=== PATIENT | male | born 1995 ===

== ENCOUNTER → 2021-02-08 13:06 | Outpatient (REF) | payer OTHER, SELFPAY | LOC: HO.SL 13:06 | PROVIDERS: PCP Internal Medicine; Visit Provider Internal Medicine | DX: R40.0 Somnolence (principal); R53.83 Other fatigue | CPT/HCPCS: 95806 ==

== ENCOUNTER 2021-10-19 12:40 | Outpatient (REF) | payer OTHER, SELFPAY ==
--- NOTE | ~2021-10-19 | XR_ITS ---
EXAMINATION: 1. RADIOGRAPHS RIGHT HAND 2. RADIOGRAPHS LEFT HAND CLINICAL INFORMATION: Bilateral hand pain COMPARISON: None TECHNIQUE: 3 views of each hand. FINDINGS: Right hand: Visualized portion of the distal radius and ulna demonstrate no fracture. Carpal rows are well aligned. No carpal, metacarpal or phalangeal fracture. No appreciable degenerative changes of the right hand. No focal soft tissue swelling. No radiopaque foreign body. Some subtle sclerotic changes within the distal fourth phalanx are nonspecific but likely outbound telemarketing representative of a bone island. Left hand: Visualized portion of the distal radius and ulna demonstrate no fracture. Carpal rows are well aligned. No carpal, metacarpal or phalangeal fracture. No appreciable degenerative changes of the left hand. No focal soft tissue swelling. No radiopaque foreign body. XR/XR hand LT min 3V IMPRESSION: No fracture or gross abnormality of either hand.
--- NOTE | ~2021-10-19 | XR_ITS ---
EXAMINATION: 1. RADIOGRAPHS RIGHT HAND 2. RADIOGRAPHS LEFT HAND CLINICAL INFORMATION: Bilateral hand pain COMPARISON: None TECHNIQUE: 3 views of each hand. FINDINGS: Right hand: Visualized portion of the distal radius and ulna demonstrate no fracture. Carpal rows are well aligned. No carpal, metacarpal or phalangeal fracture. No appreciable degenerative changes of the right hand. No focal soft tissue swelling. No radiopaque foreign body. Some subtle sclerotic changes within the distal fourth phalanx are nonspecific but likely client services representative of a bone island. Left hand: Visualized portion of the distal radius and ulna demonstrate no fracture. Carpal rows are well aligned. No carpal, metacarpal or phalangeal fracture. No appreciable degenerative changes of the left hand. No focal soft tissue swelling. No radiopaque foreign body. XR/XR hand RT min 3V IMPRESSION: No fracture or gross abnormality of either hand.
[2021-10-19 14:00] LABS: MANUAL DIFF FLAG NO
[2021-10-19 14:06] LABS: Basophils Percent Auto 0.5 % (0-2); Eosinophils Absolute Auto 0.3 X10*3/uL (0.0-0.4); Eosinophils Percent Auto 4.2 % (0-4); Hematocrit 39.2 % (42.0-52.0); Hemoglobin 13.7 g/dl (14.0-18.0); Imm Gran Abs Auto 0.03 X10*3/uL (0.00-0.03); Imm Gran Pct Auto 0.4 % (0.0-0.4); Lymphocytes Percent Auto 25.2 % (20-40); Mean Corpuscular HGB Conc 34.9 g/dl (31.0-36.0); Mean Corpuscular Hemoglobin 31.5 pg (27.0-33.0); Mean Corpuscular Volume 90.1 fL (80.0-98.0); Mean Platelet Volume 10.8 fL (9.4-12.4); Monocytes Absolute Auto 0.6 X10*3/uL (0.1-1.2); Monocytes Percent Auto 7.2 % (2-11); Neutrophils Percent Auto 62.5 % (45-73); Platelet Count 252 X10*3/uL (160-400); Red Blood Count 4.35 X10*6/uL (4.60-5.80); Red Cell Distribution Width 11.3 % (11.0-16.0)
[2021-10-19 14:22] LABS: Alanine Aminotransferase 26 U/L (0-40); Albumin Level 4.5 g/dL (3.5-5.0); Alkaline Phosphatase 62 U/L (39-117); Anion Gap 8 (12-20); Aspartate Amino Transferase 20 U/L (5-37); Blood Urea Nitrogen 11 mg/dL (9-16); C Reactive Protein 0.15 mg/dL (< or = 0.50); Calcium 9.6 mg/dL (8.4-10.2); Carbon Dioxide 32 mmol/L (22-29); Chloride 103 mmol/L (96-108); Estimated Glomerular Filt Rate > 60; Glucose Random 101 mg/dL (60-115); Potassium 4.3 mmol/L (3.3-5.1); Rheumatoid Factor < 15.0 IU/mL (<15.0); Sodium 139 mmol/L (135-145); Total Protein 7.1 g/dL (6.5-8.0)
[2021-10-19 14:45] LABS: Erythrocyte Sedimentation Rate 2 MM/HR (0-15)
[2021-10-19 14:47] LABS: TSH reflex Free T4 1.17 uIU/mL (0.32-4.0)
[2021-10-20 14:15] LABS: Anti Nuclear Antibody Screen NEGATIVE (NEGATIVE)
== END 2021-10-19 12:41 | disposition home or self-care (01) ==
LOC: HO.HMGCLDS 12:40
PROVIDERS: PCP Internal Medicine; Visit Provider Internal Medicine
DX: M79.642 Pain in left hand (principal); M79.641 Pain in right hand; M25.641 Stiffness of right hand, not elsewhere classified; M25.642 Stiffness of left hand, not elsewhere classified; M25.661 Stiffness of right knee, not elsewhere classified; M25.662 Stiffness of left knee, not elsewhere classified
CPT/HCPCS: 36415; 73130; 80053; 82550; 84443; 85025; 85652; 86038; 86039; 86140; 86431

== ENCOUNTER → 2022-08-30 08:08 | Outpatient (BNVA) | payer OTHER, SELFPAY | PROVIDERS: PCP Internal Medicine; Referring Provider Internal Medicine; Visit Provider Student in an Organized Health Care Education/Training Program | DX: M25.661 Stiffness of right knee, not elsewhere classified (principal); M25.662 Stiffness of left knee, not elsewhere classified; M25.642 Stiffness of left hand, not elsewhere classified; M25.641 Stiffness of right hand, not elsewhere classified | CPT/HCPCS: 99202 ==

== ENCOUNTER 2022-09-19 13:05 | Outpatient (REF) | payer OTHER, SELFPAY ==
--- NOTE | ~2022-09-19 | MR_ITS ---
EXAMINATION: MR KNEE WITHOUT CONTRAST, LEFT CLINICAL INFORMATION: M23.90 - Unspecified internal derangement of unspecified knee. Patient reports left knee pain, weakness, popping x years. No trauma. COMPARISON: None TECHNIQUE: MRI of the knee without contrast was performed using routine sequences on a high-field scanner. FINDINGS: MENISCI: Medial Meniscus: Intact Lateral Meniscus: Borderline incomplete discoid morphology. No tears. LIGAMENTS: Cruciate: Intact Collateral: Intact EXTENSOR MECHANISM: Intact. The iliotibial band is normal in appearance. No surrounding edema signal. Fluid underlying the IT band at the level of the lateral femoral condyle corresponds to a lateral recess of the joint space (image 5/19 of series 2). ARTICULAR CARTILAGE/BONE: Patellofemoral Compartment: Normal. Articular cartilage appears well-preserved. Normal trochlear morphology. TT TG distance measures 1.1 cm. Medial Compartment: Normal Lateral Compartment: Normal JOINT FLUID AND BURSAE: No significant joint effusion or bursitis. MR/MR knee LT wo con IMPRESSION: Borderline incomplete discoid morphology of the lateral meniscus. No appreciable meniscal tears. Otherwise normal MRI of the knee.
== END 2022-09-19 13:06 | disposition home or self-care (01) ==
LOC: HO.MRI 13:05
PROVIDERS: Visit Provider Student in an Organized Health Care Education/Training Program
DX: M23.92 Unspecified internal derangement of left knee (principal)
CPT/HCPCS: 73721

== ENCOUNTER 2022-10-16 15:00 | Outpatient (RCR) | payer OTHER, SELFPAY ==
--- NOTE | 2022-09-18 15:14 | MHC.OT.EP ---
[address] [phone] Occupational Therapy Plan of Care Date of Evaluation: 09/18/22 Diagnosis: B/L Hand Pain and Weakness Assessment: 26 yo male presents w/ B/L hand pain and stiffness, right hand more than left, worsening w/ work tasks, and present for the past year or so. He lives w/ and son and is Ind w/ daily activities, he enjoys woodworking and building things, as well as donald and bowling. On assessment, he has good range and stretch w/ no significant joint limitations, but does have tightness in intrinsic hand muscles and forearm flexors and extensors. He will benefit from brief course of OT for stretch and eduication of use of heat and modalities for softening and stretching tissues in order to gain efficiency of muscles w/ everyday use of hands. Frequency and Duration: The patient will be seen 2x/wk for 3 weeks Short Term Goals: Ind w/ HEP Ind w/ techniques for self hand massage Ind w/ use of heat modalities for soft tissue warmth and pliability Improved intrinsic range and forearm musculature stretch to improve wrist range Correction Goals: same as above Treatment Plan: Therapeutic Exercise Therapeutic Activity Home Exercise Program Patient Education ADL Training Paraffin Fluidotherapy MHP Soft Tissue Mobilization Electronically Signed By: ERROL Sawyer/Christian CHT Please Sign and return to therapist. Thank you once again for your referral.
--- NOTE | 2022-10-19 13:09 | MHC.OT.DC ---
[address] [phone] F: [phone] Occupational Therapy Discharge Note Provider: Dr Emilio Toney Diagnosis: B/L Hand Pain and Weakness Date of Evaluation: 09/18/22 Date of Discharge: 10/16/22 Treatments to Date: 6 Discharge Status: Achieved Goals Improved Function Independent with HEP Discharge Summary: Saeed was referred to OT w/ B/L hand pain and tightness, likely due to overuse w/ work and daily activities. He has done well through course of therapy w/ stretching, massage and modifications. Currently he reports no c/o pain or tightness and has good digit ROM and strength. Saeed also has good understanding of HEP and has met all goals. Electronically Signed By: Mirta Leblanc OTR/L CHT Reviewed/agree with student documentation: Therapist: Please Sign and return to therapist, thank you for your referral.
== END 2022-10-19 13:09 | disposition home or self-care (01) ==
LOC: HO.OT 15:00
PROVIDERS: PCP Internal Medicine; Visit Provider Student in an Organized Health Care Education/Training Program
DX: M19.041 Primary osteoarthritis, right hand (principal); M19.042 Primary osteoarthritis, left hand
CPT/HCPCS: 97018; 97110; 97140; 97165

== ENCOUNTER 2022-10-17 16:43 | Outpatient (REF) | payer OTHER, SELFPAY ==
--- NOTE | ~2022-10-17 | XR_ITS ---
EXAMINATION: 1. STANDING BILATERAL KNEE X-RAY 2 LATERAL AND PATELLAR SUNRISE RADIOGRAPHS OF THE LEFT KNEE CLINICAL INFORMATION: Bilateral knee pain COMPARISON: Bilateral knee x-rays 05/20/2020 TECHNIQUE: Standing AP views of both knees were obtained. An additional lateral and patellar sunrise view of the left knee was taken. FINDINGS: No fracture or dislocation of either knee. Joint spaces are well-maintained within each knee. Lateral view of the left knee demonstrates no appreciable effusion. There are no significant degenerative changes of either knee. No localized soft tissue swelling identified. XR/XR knee standing BI IMPRESSION: Unremarkable radiographs of the bilateral knees.
--- NOTE | ~2022-10-17 | XR_ITS ---
EXAMINATION: 1. STANDING BILATERAL KNEE X-RAY 2 LATERAL AND PATELLAR SUNRISE RADIOGRAPHS OF THE LEFT KNEE CLINICAL INFORMATION: Bilateral knee pain COMPARISON: Bilateral knee x-rays 05/20/2020 TECHNIQUE: Standing AP views of both knees were obtained. An additional lateral and patellar sunrise view of the left knee was taken. FINDINGS: No fracture or dislocation of either knee. Joint spaces are well-maintained within each knee. Lateral view of the left knee demonstrates no appreciable effusion. There are no significant degenerative changes of either knee. No localized soft tissue swelling identified. XR/XR knee LT 2V IMPRESSION: Unremarkable radiographs of the bilateral knees.
== END 2022-10-17 16:44 | disposition home or self-care (01) ==
LOC: HO.HOSX 16:43
PROVIDERS: Visit Provider Physician Assistant
DX: M25.562 Pain in left knee (principal); M25.561 Pain in right knee; Q68.6 Discoid meniscus; M94.20 Chondromalacia, unspecified site
CPT/HCPCS: 73560; 73565; 99202

== ENCOUNTER → 2022-11-22 07:48 | Outpatient (BNVA) | payer OTHER, SELFPAY | PROVIDERS: PCP Internal Medicine; Visit Provider Student in an Organized Health Care Education/Training Program | DX: M19.041 Primary osteoarthritis, right hand (principal); M19.042 Primary osteoarthritis, left hand; Q68.6 Discoid meniscus | CPT/HCPCS: 99212 ==

== ENCOUNTER 2023-06-20 07:31 | Outpatient (AMB) | payer OTHER, SELFPAY ==
[2023-06-20 07:39] VITALS: BP 112/62; PULSE 65; O2SAT 98; BMI 24.1
--- NOTE | 2023-06-20 07:39 | A.OFFPC_ITS ---
Vital Signs 06/20/23 07:39 Height 5 ft 9 in Weight 163 lb BMI 24.1 BP 112/62 Blood Pressure Location Lt brachial Position Sitting Pulse 65 Pulse Source Pulse Oximeter Pulse Oximetry (%) 98 Oxygen Delivery Method Room Air Intake Visit Reasons: Annual PE Allergies No Known Allergies Allergy (Verified 06/20/23 07:52) Medication List - Last Reconciled 06/20/23 by HERNAN Grissom No Known Home Meds Tobacco use date assessed: 06/20/23 Dental Screening Dental Screen Date: 06/20/23 Did you have a dental visit in the last 12 months?: Yes Did you have a dental problem in the last 6 months where you did not have access to dental care?: No Was dental information given to patient?: Patient has dentist HPI HPI Comments History of Present Illness Details 27-year-old male past medical history si gnificant for arthralgia, osteoarthritis of bilateral hands, discoid lateral meniscus of left knee and chondromalacia. Patient of Dr. Peterson last seen in January 2022, patient presents today for physical exam. Patient denies any chest pain, palpitations, shortness of breath or syncope. Patient requesting physical form be completed, Patient reports he is able to run 1.5 miles, complete pushups, sit- ups and wear any recommended body armor or equipment. Eye exam: LASIK eye surgery completed in June 2022, continues to follow with building cleaner as recommended. Patient requesting Tdap is he just had a new baby, Tdap given in office today. [facility] Civilian physical form completed and to be scanned into chart. Complete blood work obtained in October 2021, patient declined repeat labs at this time. [facility] Medical History Anxiety Attention deficit Fatigue Daytime somnolence Surgical History History of photorefractive keratectomy (PRK) Family History Father Hypertension Mother Diabetes Social History Housing: House Alcohol intake: former Patient Tobacco Use Status: Former Tobacco user Tobacco use type: Cigarette e-Cigarette/Vaping Use: Currently Using Second Hand Smoke Exposure: Yes service: Yes Current occupational status: employed Cognitive needs: No Hearing needs: No Vision needs: Yes Questionnaire PHQ-9 Over the last 2 weeks, how often have you been bothered by any of the following problems? 1. Little interest or pleasure in doing things: not at all 2. Feeling down, depressed, or hopeless: not at all 3. Trouble falling or staying asleep, or sleeping too much: not at all 4. Feeling tired or having little energy: not at all 5. Poor appetite or overeating: not at all 6. Feeling bad about yourself - or that you are a failure or have let yourself or your family down: not at all 7. Trouble concentrating on things, such as reading the newspaper or watching television: not at all 8. Moving or speaking so slowly that other people could have noticed. Or the opposite - being so fidgety or restless that you have been moving around a lot more than usual: not at all 9. Thoughts that you would be better off or of hurting yourself in some way: not at all Total score: 0 Depression Screening Interpretation: Negative 20584 - PHQ-9 Billing: Yes Source: Developed by Drs. Ricardo White, Marylou Rivera, Phil Patton and colleagues, with an educational braeden from [employer]. Thrive Questionnaire Date Thrive assessed: 06/20/23 I am a: Patient What is your living situation today?: I have a steady place to live Within the past 12 months, did the food you bought not last and you didn't have the money to get more?: Never true Within the past 12 months, did you worry whether your food would run out before you got money to buy more?: Never true Do you have trouble paying for medicines?: No Do you have trouble getting transportation to medical appointments?: No Do you have trouble paying your heating and electricity bill?: No Do you have trouble taking care of your child, family member or friend?: No Do you have trouble with day-to-day activities such as bathing, preparing meals, shopping, managing finances, etc.?: No Are you currently unemployed and looking for a job?: No Are you interested in more education?: No Currently or been in a relationship where the following occur: no concerns reported AUDIT C Alcohol Use Questionnaire (AUDIT-C) 1. How often do you have a drink containing alcohol?: Monthly or less 2. How many drinks containing alcohol do you have on a typical day when you are drinking?: 1 or 2 3. How often do you have six or more drinks on one occasion?: Never Total Score: 1 Score Reviewed/Action Taken: Yes CYRIL-7 AMB Questionnaire CYRIL-7 Date CYRIL - 7 assessed: 06/20/23 Feeling nervous, anxious, or on edge: 0 = Not at all Not being able to stop or control worryin = Not at all Worrying too much about different things: 0 = Not at all Trouble relaxin = Not at all Being so restless that it is hard to sit still: 0 = Not at all Becoming easily annoyed or irritable: 0 = Not at all Feeling afraid as if something awful might happen: 0 = Not at all Total CYRIL-7 score (0-4 normal; 5-9 mild; 10-14 moderate; 15-21 severe): 0 Source: Developed by Drs. Ricardo White, Marylou Rivera, Phil Patton and colleagues, with an educational braeden from [employer]. CYRIL-7 Assessment Billing CYRIL-7 Assessment Tool: CYRIL-7 Assessment 59378 Review of Systems Const Denies chills, Denies fatigue, Denies fever(s) and Denies poor appetite Eyes Denies no additional complaints ENT Reports Normal hearing present Card Denies chest pain, Denies syncope, Denies rapid heart rate and Denies dyspnea Resp Denies cough and Denies dyspnea GI Denies change in stool character, Denies constipation, Denies diarrhea, Denies nausea and Denies vomiting Denies dysuria, Denies urinary frequency and Denies urinary urgency Neuro Reports Normal hearing present, Denies confusion and Denies syncope Psych Denies confusion Endo Denies fatigue Physical exam (Primary Care) Vital Signs: Last Vital Signs Pulse 65 06/20/23 07:39 BP 112/62 06/20/23 07:39 Pulse Ox 98 06/20/23 07:39 Oxygen Delivery Method Room Air 06/20/23 07:39 BMI result Body Mass Index 24.1 Tobacco/Smoking Status: Tobacco use Status Tobacco use date assessed 06/20/23 06/20/23 07:44 Patient Tobacco Use Status Former Tobacco user 06/20/23 07:44 Tobacco use type Cigarette 06/20/23 07:44 e-Cigarette/Vaping Use Currently Using 06/20/23 07:44 PHQ-9: PHQ-9 Score PHQ-9: Total score 0 06/20/23 08:17 Depression Screening Interpretation: Negative Thrive Assessment: Date of Thrive Assessment Date Thrive assessed 06/20/23 06/20/23 07:44 Currently or been in a relationship where the following occur: no concerns reported Const General: No confusion Orientation/consciousness: No confusion HENMT Head: Yes normocephalic and Yes atraumatic Ears: external ears normal and TM's normal bilaterally General nose exam: Normal external nose present and Normal nasal mucous membranes and turbinates present Face and sinus: Yes normal facial exam and Yes sinuses nontender Mouth: moist mucous membranes Throat: Yes tonsils normal Eyes Conjunctivae: conjunctivae normal Sclerae: sclerae normal Pupils: Equal, round and reactive pupils present and Pupils normal by confrontation EOM: EOMs intact bilaterally Direct Ophthalmoscopy: normal light reflex Neck Neck: Yes no lymphadenopathy and Yes supple Thyroid: Thyroid normal Chest Chest palpation & inspection: normal inspection of the chest Resp Effort & Inspection: normal respiratory effort Auscultation: clear to auscultation bilaterally, no crackles, no rhonchi and no wheezes Cardio Rate: regular rate Rhythm: regular rhythm Peripheral pulses: radial pulses present and dorsalis pedis present GI Inspection: Yes normal to inspection Palpation (GI): Soft to palpation, nontender and No hepatosplenomegaly present Auscultation: normoactive bowel sounds Skin General skin exam: no rashes or lesions noted Neuro General: No confusion Cranial nerves: Yes Equal, round and reactive pupils present and Yes Normal hearing present Cognition (Neuro): normal cognition Gait exam (Neuro): Normal gait present Motor exam (neuro): 5/5 motor strength present throughout Deep tendon reflexes (DTR's): Right brachioradialis reflex intensity grade: 2+, Left brachioradialis reflex intensity grade: 2+, Right patellar reflex intensity grade: 2+ and Left patellar reflex intensity grade: 2+ Extrem General: No edema Immunizations Adacel(Tdap Adolesn/Adult)(PF) 2 Lf-(2.5-5-3-5)-5 Lf/0.5 mL IM syringe Performing Provider: HERNAN Grissom Performing [facility] [place] [facility] Administered by: Barbara Warren RN on 06/20/23 08:20 Dose Route Admin Location Dispensed Lot Number Expiration Date NDC Prep Room Supervisor 0.5 mL IM Left Deltoid 0.5 mL [id number] 09/18/25 [id number] Build[employer]ax VIS Given Date VIS Provided VIS Publication Date 06/20/23 Single Vaccine 21 Eligibility Eligibility Date Funding Source Not VFC Eligible 06/20/23 Private Assessment and Plan Assessment & Plan (1) Discoid lateral meniscus of left knee: Code(s): Q68.6 - Discoid meniscus Plan: Patient requesting new referral to physical therapy as he was not able to completed in the past as recommended by orthopedic. New order entered. (2) Physical exam, annual: Code(s): Z00.00 - Encounter for general adult medical examination without abnormal findings Orders: Orders PT Evaluation and Treatment Today Q68.6 - Discoid meniscus TDaP State Immunization Today Z23 - Encounter for immunization Coding Level of Care Code Est Pt Prev Care 18-39y(05368) Diagnoses Discoid lateral meniscus of left knee Q68.6 Physical exam, annual Z00.00 Additional Codes CYRIL-7 Assessment Billing - CYRIL-7 Assessment Tool: CYRIL-7 Assessment 34417 ([id number])
== END 2023-06-20 08:25 | disposition home or self-care (01) ==
PROVIDERS: PCP Internal Medicine; Visit Provider Nurse Practitioner Family
DX: Z00.00 Encounter for general adult medical examination without abnormal findings (principal); Q68.6 Discoid meniscus; Z23 Encounter for immunization
CPT/HCPCS: 90471; 90715; 99395

== ENCOUNTER 2023-10-18 14:00 | Outpatient (RCR) | payer OTHER, SELFPAY ==
--- NOTE | 2023-09-09 14:55 | MHC.PT.EP ---
[facility] [place] Office [place] Office [place] Office [address] Mouna Contreras [address] [phone] F: [phone] F: [phone] F: [phone] F: [phone] Physical Therapy Plan of Care Date of Evaluation: 09/09/23 Date of Surgery: n/a Diagnosis: discoid lateral meniscus L knee Assessment: Patient is a 27 year old male presenting to PT with complaints of pain in his L knee. Pt reports onset of pain began years ago due to insidious onset. He presents today with impairments in pain, knee strength, hip strength, ttp L lateral quad. Pt's current occupation is [employer], with baseline physical activities including ADLs, work, standing, stair negotiation. 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 Clinical presentation today is most consistent with signs and sx associated with L knee pain and pt will benefit from skilled PT 2 week x 4 weeks to address the following problems and impairments noted upon evaluation: pain, knee strength, hip strength, ttp L lateral quad. These problems limit the patient with the following functional activities: pain, knee strength, hip strength, ttp L lateral quad. The prescribed treatment plan of care is medically necessary. Co-morbidities of discoid L meniscus were identified and taken into considerations of plan of care. Pt was educated on HEP, role of PT, prognosis, POC. Frequency and Duration: The patient will be seen 2 x week x 4 weeks Short Term Goals: Pt will demonstrate less tenderness to palpation of lateral quads in 2 weeks. Pt will demonstrate improved hip MMT strength by 1/3 grade in 2 weeks for improved lumbopelvic stability. Pt will demonstrate ability to perform knee MMT without discomfort in 2 weeks. [place] Goals: Pt will demonstrate improved LEFI score by 9 points in 4 weeks for improved functional mobility. Pt will demonstrate ability to stand for prolonged periods of time with min to no pain in 4 weeks for improved tolerance to work activities. Pt will demonstrate ability to negotiate stairs step over step with min to no pain in 4 weeks for improved access to his home. Treatment Plan: Modalities to reduce pain, spasms and effusion. Manual therapy to restore motion and function. Therapeutic exercise to improve strength and flexibility. Neuromuscular re-education for posture and balance. Therapeutic activities to return to functional activities of daily living. Electronically signed by: Traci Loco PT, DPT, ATC Please sign and return to therapist. Thank you for your referral.
--- NOTE | 2023-10-18 14:46 | MHC.PT.DC ---
[facility] [place] Office [place] Office [place] Office [address] Mouna Contreras [address] [phone] F: [phone] F: [phone] F: [phone] F: [phone] Physical Therapy Discharge Report Diagnosis: discoid lateral meniscus L knee Date of Surgery: n/a Date of Evaluation: 09/09/23 Date of Discharge: 10/18/23 Treatments to Date: 9 Cancellations to Date: 1 No Shows to Date: 0 Discharge Status: Achieved Goals Improved Function Independent with HEP Discharge Summary: 10/18/2023: Pt pain levels are improved since beginning skilled PT. His pain and cracking are less frequent. He demonstrates good carry over with exercises and is independent in his HEP. At this time max benefits of PT have been provided and skilled PT is no longer indicated. Pt to be d/c to HEP. He is in agreement with d/c today. Electronically signed by: Traci Loco, PT, DPT, ATC Please sign and return to therapist. Thank you for your referral.
== END 2023-10-18 14:47 | disposition home or self-care (01) ==
LOC: HO.PTCHIC 14:00
PROVIDERS: PCP Internal Medicine; Visit Provider Nurse Practitioner Family
DX: Q68.6 Discoid meniscus (principal)
CPT/HCPCS: 97110; 97161

== ENCOUNTER 2024-06-23 12:59 | Outpatient (AMB) | payer OTHER, SELFPAY ==
[2024-06-23 13:06] VITALS: BP 110/78; PULSE 73; O2SAT 98; BMI 24.9
--- NOTE | 2024-06-23 13:06 | MHC.PC.OV ---
Vital Signs 06/23/24 13:06 Height 5 ft 9 in Weight 168 lb 8 oz BMI 24.9 BP 110/78 Blood Pressure Location Lt brachial Position Sitting Pulse 73 Pulse Source Pulse Oximeter Pulse Oximetry (%) 98 Oxygen Delivery Method Room Air Intake Visit Reasons: Annual Exam Sales/Marketing Required: No Accompanied by: Self / Same As Patient Allergies No Known Allergies Allergy (Verified 06/23/24 13:29) Medication List - Last Reconciled 06/23/24 by Micha Ernst MD No Known Home Meds Tobacco use date assessed: 06/23/24 Dental Screening Dental Screen Date: 06/23/24 Did you have a dental visit in the last 12 months?: Yes Did you have a dental problem in the last 6 months where you did not have access to dental care?: No Was dental information given to patient?: Patient has dentist HPI Annual Exam HPI Details Patient comes in today for his annual physical examination - was last seen by me over 2 years ago on 01/17/2022 States that he again needs his physical exam form completed - 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 [place] He relates (+) fatigue often lately and is looking to have some labs done and have his testosterone level checked as well He is also requesting for a referral for vasectomy - states that he and his just had their second child and he does not want to have any more kids He denies any headaches or dizziness Denies any chest pains, no SOB No nausea/vomiting, no abdominal pain No change in bowel habits noted He denies any acute urinary symptoms Still has on and off left knee discomfort and at times, pain but states that the pain is mostly mild and tolerable and he takes OTC Ibuprofen as needed when his knee pain increases, with (+) relief of his symptoms He has been seen by orthopedics for his knees and had x-rays done in the past - his most recent x-rays in October 2022 came out normal [facility] Medical History Anxiety Attention deficit Fatigue Daytime somnolence Surgical History History of photorefractive keratectomy (PRK) Family History Father Hypertension Mother Diabetes Social History Housing: House Alcohol intake: former Patient Tobacco Use Status: Former Tobacco user Tobacco use type: Cigarette e-Cigarette/Vaping Use: Currently Using Second Hand Smoke Exposure: Yes service: Yes Current occupational status: employed Cognitive needs: No Hearing needs: No Vision needs: Yes Questionnaire PHQ-9 Over the last 2 weeks, how often have you been bothered by any of the following problems? 1. Little interest or pleasure in doing things: several days 2. Feeling down, depressed, or hopeless: not at all 3. Trouble falling or staying asleep, or sleeping too much: not at all 4. Feeling tired or having little energy: several days 5. Poor appetite or overeating: several days 6. Feeling bad about yourself - or that you are a failure or have let yourself or your family down: not at all 7. Trouble concentrating on things, such as reading the newspaper or watching television: not at all 8. Moving or speaking so slowly that other people could have noticed. Or the opposite - being so fidgety or restless that you have been moving around a lot more than usual: not at all 9. Thoughts that you would be better off or of hurting yourself in some way: not at all Total score: 3 Depression Screening Interpretation: Negative Depression Screening Done: Yes 43218 - PHQ-9 Billing: Yes Source: Developed by Drs. Ricardo White, Marylou Rivera, Phil Patton and colleagues, with an educational braeden from [employer] Thrive Questionnaire Date Thrive assessed: 06/23/24 I am a: Patient What is your living situation today?: I have a steady place to live Within the past 12 months, did the food you bought not last and you didn't have the money to get more?: Never true Within the past 12 months, did you worry whether your food would run out before you got money to buy more?: Never true Do you have trouble paying for medicines?: No Do you have trouble getting transportation to medical appointments?: No Do you have trouble paying your heating and electricity bill?: No Do you have trouble taking care of your child, family member or friend?: No Do you have trouble with day-to-day activities such as bathing, preparing meals, shopping, managing finances, etc.?: No Are you currently unemployed and looking for a job?: No Are you interested in more education?: No Please select the resources that you would like help with: None Currently or been in a relationship where the following occur: No concerns reported THRIVE Score: 0 AUDIT C Alcohol Use Questionnaire (AUDIT-C) 1. How often do you have a drink containing alcohol?: Monthly or less 2. How many drinks containing alcohol do you have on a typical day when you are drinking?: 1 or 2 3. How often do you have six or more drinks on one occasion?: Less than monthly Total Score: 2 Score Reviewed/Action Taken: Yes CYRIL-7 AMB Questionnaire CYRIL-7 Date CYRIL - 7 assessed: 06/23/24 Feeling nervous, anxious, or on edge: 0 = Not at all Not being able to stop or control worryin = Not at all Worrying too much about different things: 0 = Not at all Trouble relaxin = Not at all Being so restless that it is hard to sit still: 0 = Not at all Becoming easily annoyed or irritable: 0 = Not at all Feeling afraid as if something awful might happen: 0 = Not at all Total CYRIL-7 score (0-4 normal; 5-9 mild; 10-14 moderate; 15-21 severe): 0 Source: Developed by Drs. Ricardo White, Marylou Rivera, Phil Patton and colleagues, with an educational braeden from [employer] Review of Systems Const Denies chills, Denies difficulty sleeping, Reports fatigue, Denies fever(s), Denies headache(s), Denies malaise and Denies weakness Eyes Denies blurry vision, Denies change in vision, Denies irritation and Denies itchy eyes ENT Denies dysphagia, Denies dizziness, Denies otalgia, Denies headache(s), Denies nasal congestion, Denies neck pain, Denies odynophagia and Denies sore throat Card Denies chest pain, Denies rapid heart rate, Denies irregular heart rhythm, Denies palpitations and Denies dyspnea Resp Denies chest congestion, Denies cough, Denies dyspnea and Denies wheezing GI Denies abdominal pain, Denies bloating, Denies constipation, Denies dysphagia, Denies heartburn, Denies diarrhea, Denies nausea, Denies odynophagia and Denies vomiting Denies hematuria, Denies difficulty urinating, Denies dysuria, Denies urinary frequency and Denies urinary urgency Musc Denies back pain, Reports arthralgias (on and off, in both knees and both hands often), Denies joint swelling, Denies muscle weakness and Denies neck pain Skin/Breast Denies change in pigmentation, Denies lesions, Denies rash and Denies unusual bruising Neuro Denies dizziness, Denies headache(s), Denies paresthesias and Denies weakness Endo Reports fatigue and Denies palpitations Aller/Immun Denies itchy eyes and Denies wheezing Physical exam (Primary Care) Vital Signs: Last Vital Signs Pulse 73 06/23/24 13:06 BP 110/78 06/23/24 13:06 Pulse Ox 98 06/23/24 13:06 Oxygen Delivery Method Room Air 06/23/24 13:06 BMI result Body Mass Index 24.9 Tobacco/Smoking Status: Tobacco use Status Tobacco use date assessed 06/23/24 06/23/24 13:10 Patient Tobacco Use Status Former Tobacco user 06/23/24 13:10 Tobacco use type Cigarette 06/23/24 13:10 e-Cigarette/Vaping Use Currently Using 06/23/24 13:10 PHQ-9: PHQ-9 Score PHQ-9: Total score 3 06/23/24 13:10 Depression Screening Interpretation: Negative Thrive Assessment: Date of Thrive Assessment Date Thrive assessed 06/23/24 06/23/24 13:10 Currently or been in a relationship where the following occur: No concerns reported Const General: no acute distress, alert and awake Orientation/consciousness: patient oriented x3 HENMT Head: Yes normocephalic and Yes atraumatic Ears: external ears normal, TM's normal bilaterally and EAC's normal General nose exam: No nasal discharge present Face and sinus: Yes normal facial exam and Yes sinuses nontender Teeth and gingiva: dentition normal Throat: Yes posterior oropharynx normal and Yes tonsils normal (no TP congestion) Eyes Eyelids: Yes eyelids normal Conjunctivae: conjunctivae normal Pupils: Equal, round and reactive pupils present EOM: EOMs intact bilaterally Neck Neck: Yes no lymphadenopathy and Yes supple Thyroid: Thyroid normal Resp Auscultation: clear to auscultation bilaterally, no rales and no wheezes Cardio Rate: regular rate Rhythm: regular rhythm Heart sounds: no murmurs GI Palpation (GI): Soft to palpation, nontender and No hepatosplenomegaly present Auscultation: normal bowel sounds General: Yes no CVA tenderness Back/Spine/Pelvis Back: no CVA tenderness Thoracic/Lumbar Spine: thoracic and lumbar spine normal to inspection Skin Lesions: no lesions Rashes: no rashes Neuro General: patient oriented x3, moves all extremities, no focal motor deficits and CN's II-XI intact bilaterally Cranial nerves: Yes Equal, round and reactive pupils present Cognition (Neuro): normal cognition Gait exam (Neuro): Normal gait present Extrem General: Yes no clubbing, cyanosis or edema Assessment and Plan Assessment & Plan (1) Annual physical exam: Code(s): Z00.00 - Encounter for general adult medical examination without abnormal findings Plan: Check labs physical exam form filled out, per request (copy is scanned into patient's chart for documentation (2) Arthralgia: Code(s): M25.50 - Pain in unspecified joint Qualifiers: Joint pain location: unspecified Qualified Code(s): M25.50 - Pain in unspecified joint Plan: Patient has had x-rays and imaging studies (including MRI of the knee) done over the past few years with no significant abnormal findings seen He has been seen by rheumatology and orthopedics for further evaluation and was diagnosed with overuse tendinitis and recommended to pursue physical therapy as needed States that he takes OTC Ibuprofen PRN with adequate relief of his symptoms (3) Fatigue: Code(s): R53.83 - Other fatigue Qualifiers: Fatigue type: unspecified Qualified Code(s): R53.83 - Other fatigue Plan: Per request, will include a serum testosterone level with his labs for further evaluation Advised that we will also include CBD (he was noted to be slightly anemic on his most recent labs done back in early 2021) as well as a TSH level for further evaluation (4) Request for sterilization: Code(s): Z30.2 - Encounter for sterilization Plan: Will refer him to urology for consultation regarding sterilization/vasectomy, per request Plan To return in 1 year for his next annual physical examination Orders: Orders Comprehensive Met. Panel Today Z00.00 - Encounter for general adult medical examination without abnormal findings IRON PROFILE Today D50.9 - Iron deficiency anemia, unspecified Complete Blood Count Auto Diff Today D64.9 - Anemia, unspecified, Z00.00 - Encounter for general adult medical examination without abnormal findings Cholesterol Today Z00.00 - Encounter for general adult medical examination without abnormal findings TSH reflex Free T4 Today E78.00 - Pure hypercholesterolemia, unspecified, Z00.00 - Encounter for general adult medical examination without abnormal findings UA CC w/rflx Micro + Cult Today R30.0 - Dysuria, Z00.00 - Encounter for general adult medical examination without abnormal findings Vitamin D 25-OH Total Today E55.9 - Vitamin D deficiency, unspecified, Z00.00 - Encounter for general adult medical examination without abnormal findings Testosterone, Free/Total Today R53.83 - Other fatigue, R79.89 - Other specified abnormal findings of blood chemistry Referrals Urology Referral Z30.09 - Encounter for other general counseling and advice on contraception Coding Level of Care Code Est Pt Prev Care 18-39y(12933) Diagnoses Annual physical exam Z00.00 Arthralgia, unspecified joint M25.50 Joint pain location: unspecified Fatigue, unspecified type R53.83 Fatigue type: unspecified Request for sterilization Z30.2
== END 2024-06-23 13:48 | disposition home or self-care (01) ==
PROVIDERS: PCP Internal Medicine; Visit Provider Internal Medicine
DX: Z00.00 Encounter for general adult medical examination without abnormal findings (principal); M25.50 Pain in unspecified joint; R53.83 Other fatigue; Z30.2 Encounter for sterilization
CPT/HCPCS: 99395

== ENCOUNTER 2024-06-23 13:54 | Outpatient (REF) | payer OTHER, SELFPAY ==
[2024-06-23 14:14] LABS: MANUAL DIFF FLAG NO
[2024-06-23 14:32] LABS: Basophils Percent Auto 0.6 % (0-2); Eosinophils Absolute Auto 0.4 X10*3/uL (0.0-0.4); Eosinophils Percent Auto 6.2 % (0-4); Hematocrit 42.8 % (42.0-52.0); Hemoglobin 15.3 g/dl (14.0-18.0); Imm Gran Abs Auto 0.01 X10*3/uL (0.00-0.03); Imm Gran Pct Auto 0.2 % (0.0-0.4); Lymphocytes Absolute Auto 2.6 X10*3/uL (1.2-4.9); Lymphocytes Percent Auto 38.8 % (20-40); Mean Corpuscular HGB Conc 35.7 g/dl (31.0-36.0); Mean Corpuscular Hemoglobin 31.1 pg (27.0-33.0); Mean Platelet Volume 10.8 fL (9.4-12.4); Monocytes Absolute Auto 0.5 X10*3/uL (0.1-1.2); Monocytes Percent Auto 7.7 % (2-11); Neutrophils Absolute Auto 3.1 x10*3/uL (2.0-8.3); Neutrophils Percent Auto 46.5 % (45-73); Platelet Count 243 X10*3/uL (160-400); Red Blood Count 4.92 X10*6/uL (4.60-5.80); Red Cell Distribution Width 11.8 % (11.0-16.0); White Blood Count 6.6 X10*3/uL (4.8-10.8)
[2024-06-23 15:15] LABS: Appearance Urine Clear; Color Urine Yellow; Glucose Urine UA Negative (Negative); Leukocyte Esterase Urine Negative (Negative); Nitrite Urine Negative (Negative); Specific Gravity - Urine 1.015 (1.005-1.025); Urine Blood Negative (Negative); Urine Ketones Negative (Negative); Urine Protein Negative (Neg-Trace)
[2024-06-23 15:35] LABS: Alanine Aminotransferase 14 U/L (0-40); Albumin Level 4.5 g/dL (3.5-5.0); Alkaline Phosphatase 58 U/L (39-117); Anion Gap 10 (12-20); Aspartate Amino Transferase 17 U/L (5-37); Bilirubin Total 1.2 mg/dL (0.0-1.0); Blood Urea Nitrogen 13 mg/dL (9-16); Calcium 9.8 mg/dL (8.4-10.2); Carbon Dioxide 30 mmol/L (22-29); Chloride 103 mmol/L (96-108); Cholesterol 161 mg/dL (<200); Estimated Glomerular Filt Rate > 60; Glucose Random 89 mg/dL (60-115); Iron 91 mcg/dL (45-160); Percent Iron Saturation 35 % (15-50); Potassium 4.4 mmol/L (3.3-5.1); Sodium 139 mmol/L (135-145); Total Iron Binding Capacity 257 mcg/dL (228-428); Total Protein 7.3 g/dL (6.5-8.0); Unsaturated Iron Binding 166 ug/dL
[2024-06-23 15:52] LABS: TSH reflex Free T4 2.17 uIU/mL (0.32-4.0)
[2024-06-27 20:13] LABS: Testosterone, Total 634 ng/dL (250-1100)
== END 2024-06-23 13:55 | disposition home or self-care (01) ==
LOC: HO.LAB 13:54
PROVIDERS: PCP Internal Medicine; Visit Provider Internal Medicine
DX: Z00.00 Encounter for general adult medical examination without abnormal findings (principal); D50.9 Iron deficiency anemia, unspecified; E78.00 Pure hypercholesterolemia, unspecified; R30.0 Dysuria; R79.89 Other specified abnormal findings of blood chemistry; R53.83 Other fatigue; D64.9 Anemia, unspecified; E55.9 Vitamin D deficiency, unspecified
CPT/HCPCS: 36415; 80053; 81003; 82306; 82465; 83540; 84402; 84403; 84443; 85025

== ENCOUNTER 2024-08-21 09:33 | Outpatient (AMB) | payer OTHER, SELFPAY ==
--- NOTE | 2024-08-21 09:47 | A.OFFVIS_ITS ---
Intake Visit Reasons: vasectomy consult Intake Note: Patient is present for VASECTOMY CONSULT Urology Medication:NONE Antibiotic Allergy:NONE Blood Thinner:NONE Manager Strategic Development Required: No Allergies No Known Allergies Allergy (Verified 08/21/24 09:47) HPI Comments Details: Saeed is a 28-year-old male who is here with his they have 2 children. He is here for consultation for vasectomy.Vasectomy procedure was discussed at length with the patient. He was informed that vasectomy is a safe, permanent, and effective form of control but there are risks involved. It may involve risk of hematoma, procedure failure which is rare, sperm granuloma which may cause mild pain, and congestion which may cause sense of pressure and generally resolves after several weeks. Also discussed is the reported post vasectomy pain syndrome with chronic testicular pain which is uncommon <5% The patient was advised that it is necessary to use other types of control methods for > 12 weeks and until we send semen for analysis to make sure there is no more sperm in the semen. [facility] Medical History Anxiety Attention deficit Fatigue Daytime somnolence Surgical History History of photorefractive keratectomy (PRK) Family History Father Hypertension Mother Diabetes Social History Housing: House Alcohol intake: former Patient Tobacco Use Status: Former Tobacco user Tobacco use type: Cigarette e-Cigarette/Vaping Use: Currently Using Second Hand Smoke Exposure: Yes service: Yes Current occupational status: employed Cognitive needs: No Hearing needs: No Vision needs: Yes Review of Systems Const All systems reviewed & are unremarkable except as noted in HPI and below Reports no additional complaints Eyes Reports no additional complaints ENT Reports no additional complaints Card Reports no additional complaints Resp Reports no additional complaints GI Reports no additional complaints Reports as per HPI Musc Reports no additional complaints Skin/Breast Reports system reviewed and no additional complaints, except as documented Neuro Reports no additional complaints Psych Reports no additional complaints Endo Reports no additional complaints Niall/Lymph Reports no additional complaints Aller/Immun Reports no additional complaints Physical Exam Const General: healthy appearing, no acute distress and well developed Orientation/consciousness: patient oriented x3 HEENT Head: Yes normocephalic and Yes atraumatic Eyes Conjunctivae: conjunctivae normal Neck Neck: Yes normal visual inspection Chest Chest palpation & inspection: normal inspection of the chest Resp Effort & Inspection: normal respiratory effort Cardio Rate: regular rate GI Inspection: Yes normal to inspection Skin General skin exam: no rashes or lesions noted Neuro General: patient oriented x3 Extrem General: No pedal edema Psych Appearance: grossly normal Affect: normal affect Results AMB Urinalysis, Automated UA Leukoctes 0 Edie/uL Last Edit by ANKUSH Ferrera on 08/21/24 09:51 UA Nitrite Negative Last Edit by ANKUSH Ferrera on 08/21/24 09:51 UA Urobilinogen 0.2 mg/dL Last Edit by ANKUSH Ferrera on 08/21/24 09:5 1 UA Protein 0 mg/dL Last Edit by ANKUSH Ferrera on 08/21/24 09:51 UA pH 6.0 Last Edit by Bon Clement CCM on 08/21/24 09:51 UA Blood 10 Yassine/uL Last Edit by ANKUSH Ferrera on 08/21/24 09:51 UA Specific Nada 1.020 Last Edit by ANKUSH Ferrera on 08/21/24 09: 51 UA Ketone Negative Last Edit by ANKUSH Ferrera on 08/21/24 09:51 UA Bilirubin 0 mg/dL Last Edit by Bon Clement CCM on 08/21/24 09:51 UA Glucose 0 mg/dL Last Edit by Bon Clement CCM on 08/21/24 09:51 Results Reviewed Results Reviewed: Laboratory Last Values Urine pH (Auto) 6.0 08/21/24 09:50 Specific Nada (Auto) 1.020 08/21/24 09:50 Urine Protein (Auto) 0 mg/dL 08/21/24 09:50 Glucose (UA)(Auto) 0 mg/dL 08/21/24 09:50 Urine Ketones (Auto) Negative 08/21/24 09:50 Urine Blood (Auto) 10 Yassine/uL 08/21/24 09:50 Urine Nitrite (Auto) Negative 08/21/24 09:50 Urine Bilirubin (Auto) 0 mg/dL 08/21/24 09:50 Urine Urobilinogen (Auto) 0.2 mg/dL 08/21/24 09:50 Leukocyte Esterase (Auto) 0 Edie/uL 08/21/24 09:50 Assessment & Plan Assessment & Plan (1) Screening and evaluation for vasectomy: Code(s): Z30.09 - Encounter for other general counseling and advice on contraception Category: Medical (2) Sterilization consult: Code(s): Z30.09 - Encounter for other general counseling and advice on contraception Category: Medical (3) Anxiety about health: Code(s): R45.89 - Other symptoms and signs involving emotional state Category: Medical Plan Vasectomy with Dr. Lemos in the office Orders: Orders AMB Urinalysis Automated 08/21/24 Z13.9 - Encounter for screening, unspecified Patient Instructions: The patient had an opportunity to ask questions regarding treatment plan. The p atient expressed understanding and agreement with the above treatment plan. The patient is aware they should contact our office by phone for worsening of their current condition or the appearance of new symptoms. Compliance is encouraged with any medications and followup testing that is ordered. It is a privilege to be allowed the opportunity to participate in the urologic care of your patient. If you have any questions or concerns regarding treatment for the above conditions please do not hesitate to contact me. The office telephone contact is [phone]. This note is constructed in part using voice recognition software. While every effort has been made to ensure accuracy solderer assembler errors may have been included. Yours sincerely, Lian Snyder MD Coding Level of Care Code New Pt Level 4 (96607) Diagnoses Screening and evaluation for vasectomy Z30. Sterilization consult Z. Anxiety about health R45.89
== END 2024-08-21 11:04 | disposition home or self-care (01) ==
PROVIDERS: PCP Internal Medicine; Referring Provider Internal Medicine; Visit Provider Urology
DX: Z30.09 Encounter for other general counseling and advice on contraception (principal); R45.89 Other symptoms and signs involving emotional state
CPT/HCPCS: 99204

== ENCOUNTER → 2024-08-21 09:33 | Outpatient (BNVA) | payer OTHER, SELFPAY | PROVIDERS: PCP Internal Medicine; Visit Provider Urology | DX: Z30.09 Encounter for other general counseling and advice on contraception (principal); R45.89 Other symptoms and signs involving emotional state | CPT/HCPCS: 81003; 99202 ==

== ENCOUNTER 2024-10-23 14:52 | Outpatient (AMB) | payer OTHER, SELFPAY ==
--- NOTE | 2024-10-23 14:55 | A.OFFVIS_ITS ---
Intake Visit Reasons: vasectomy Intake Note: Patient is present for VASECTOMY Urology Medication:NONE Antibiotic Allergy:NONE Blood Thinner:NONE Casing Trimmer Required: No Allergies No Known Allergies Allergy (Verified 10/23/24 14:56) HPI Comments Details: Saeed is a pleasant male. 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 Works for [employer] Medical History Anxiety Attention deficit Fatigue Daytime somnolence Surgical History History of photorefractive keratectomy (PRK) Family History Father Hypertension Mother Diabetes Social History Housing: House Alcohol intake: former Patient Tobacco Use Status: Former Tobacco user Tobacco use type: Cigarette e-Cigarette/Vaping Use: Currently Using Second Hand Smoke Exposure: Yes service: Yes Current occupational status: employed Cognitive needs: No Hearing needs: No Vision needs: Yes Review of Systems Const Denies chills and Denies fever(s) Card Reports no additional complaints and Denies syncope Resp Denies cough GI Denies abdominal pain and Denies heartburn Reports as per HPI and Denies change in libido Neuro Denies syncope Psych Denies change in libido Endo Denies change in libido Physical Exam Const General: cooperative, healthy appearing, comfortable and no acute distress Orientation/consciousness: patient oriented x3 HEENT Face and sinus: Yes normal facial exam Mouth: moist mucous membranes Neck Neck: Yes normal visual inspection, Yes full ROM and Yes trachea midline Chest Chest palpation & inspection: normal inspection of the chest Resp Effort & Inspection: normal respiratory effort, able to speak in complete sentences and no respiratory distress GI Inspection: Yes normal to inspection Back/Spine/Pelvis Cervical Spine: normal cervical lordosis Thoracic/Lumbar Spine: thoracic and lumbar spine normal to inspection Skin General skin exam: no rashes or lesions noted Neuro General: patient oriented x3, gait normal, tone normal and moves all extremities Extrem General: Yes normal to inspection and Yes capillary refill normal Office Procedures Vasectomy Details: Preoperative diagnosis: Anxiety regarding Postoperative diagnosis: Anxiety regarding unplanned Procedure: Bilateral vasectomy Informed consent had been completed. Preoperative and postoperative instructions were provided to the patient. The patient has transportation to home identified at the completion of the procedure. Anti-anxiolytic prescription medication had been taken after consent verification and all questions answered. Tylenol with Codeine pain medication was also provided. The penis was elevated using a rubber band that was attached to the patient's shirt. Both vasa were palpated through the skin using a 3 finger technique and the penoscrotal junction was prepped with Betadine. After Betadine application the left vas was elevated using a 3 finger grasping technique. 1% lidocaine was used to create a subdermal bubble. Further anesthetic was then advanced using the 25-gauge needle along the vasa in a proximal fashion. Approximately 2 minutes were allowed to for local anesthetic uptake. Using the sharp spreading instrument the scrotal skin was spread longitudinally in line with the vasa until the subdermal layer had been divided. The vasa was then elevated from the scrotum using a ring clamp. Care was taken to elevate the superior portion of the vasa by rotating the ring clamp in a caudad direction. The battery powered cautery was used to divide the vasal sheath in a longitudinal direction on the exposed vasa and to strip the vasal sheath from the vasa. A 2nd narrower ring clamp was placed on the exposed vas and used to lift the vas from the vasal sheath. so it grasped the elevated vas. The cautery was used to divide vasal attachments and allow full exposure of a small loop of vasa. The s harp spreading instrument was then used to create a tunnel under the vasa and spread to allow the blood vessels of the vasa to retract from the vasa. A mosquito clamp was placed on the proximal portion of the vas. The battery- powered cautery was used to make a partial division in the proximal vas and then inserted in order to cauterize the proximal end of the vas. This was then cut and allowed to retract into the vasal sheath. The mosquito was then used to twist the vasa 180 degrees creating a fascial interposition. Using a 4-0 chromic suture the fascial interposition was sutured closed. The distal portion of the vas was then cut in order to obtain a segment of vasa. The vasa were allowed to retract back into the scrotum. A small snap was then used to approximate the skin edges and allow hemostasis without placement of a suture. A similar procedure was repeated on the right side. He tolerated the procedure well. Triple antibiotic was applied. A gauze was applied. An ice pack was applied to assist with minimizing swelling. Postoperative instructions were confirmed. He understands the need to continue to use control methods. A semen sample should be brought for inspection under the microscope in 10-12 weeks. CPT 25531 Vasectomy performed by: Dave Lemos Informed consent given: Yes Informed consent signed: Yes Time out checklist: patient, procedure, site marked/identified, positioning of patient, supplies available, allergies confirmed and team agrees on procedure Time out staff in room: Yes Time out verified: Yes Preoperative sedation: Yes Anesthetic used: other Specimens: vas segments not sent to pathology 95031 - Vasectomy Assessment & Plan Assessment & Plan (1) Anxiety about health: Code(s): R45.89 - Other symptoms and signs involving emotional state Category: Medical Plan Vasectomy performed - work note off work until Saturday - light duties next week Patient Instructions: Imaging studies, laboratory and physical exam results were discussed and reviewed in detail. No major barriers to patient understanding were identified. An opportunity to ask questions regarding the treatment plan was provided. All questions were answered. The patient expressed understanding and agreement with the above treatment plan. The patient is aware they should contact our office by phone for worsening of their current condition or the appearance of new urologic symptoms. Compliance is encouraged with any medications and followup testing that is ordered. It is a privilege to participate in the urologic care of your patient. If you have any questions or concerns regarding treatment for the above conditions, or other urologic issues, please do not hesitate to contact me. The office telephone contact is [phone]. This note is constructed using voice recognition software. While every effort has been made to ensure accuracy public service administrator errors may have been included. Yours sincerely, Dr Dave Lemos MD, [facility] - Urology Providers of Expert, Compassionate Care for the Genitourinary System Coding Level of Care Code Procedure Only Diagnoses Anxiety about health R45.89 CPT Codes Office Procedure - CPT: 96477 - Vasectomy ([id number])
== END 2024-10-23 15:43 | disposition home or self-care (01) ==
PROVIDERS: PCP Internal Medicine; Visit Provider Urology
DX: Z30.2 Encounter for sterilization (principal)
CPT/HCPCS: 55250

== ENCOUNTER → 2024-10-23 14:52 | Outpatient (BNVA) | payer OTHER, SELFPAY | PROVIDERS: PCP Internal Medicine; Visit Provider Urology | DX: Z30.2 Encounter for sterilization (principal); R45.89 Other symptoms and signs involving emotional state | CPT/HCPCS: 55250 ==

== ENCOUNTER 2025-01-27 14:01 | Outpatient (AMB) | payer OTHER, SELFPAY ==
--- NOTE | 2025-01-27 14:08 | A.OFFVIS_ITS ---
Intake Visit Reasons: 3m Followup Intake Note: Patient is present for 3M F/U Urology Medication:NONE Antibiotic Allergy:NONE Blood Thinner:NONE Sales Promotion Coordinator Required: No Allergies No Known Allergies Allergy (Verified 01/27/25 14:13) HPI Comments Details: Saeed is a pleasant male. 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 Works for [employer] [facility] Medical History Anxiety Attention deficit Fatigue Daytime somnolence Surgical History History of photorefractive keratectomy (PRK) Family History Father Hypertension Mother Diabetes Social History Housing: House Alcohol intake: former Patient Tobacco Use Status: Former Tobacco user Tobacco use type: Cigarette e-Cigarette/Vaping Use: Currently Using Second Hand Smoke Exposure: Yes service: Yes Current occupational status: employed Cognitive needs: No Hearing needs: No Vision needs: Yes Review of Systems Const Denies chills and Denies fever(s) Card Reports no additional complaints and Denies syncope Resp Denies cough GI Denies abdominal pain and Denies heartburn Reports as per HPI and Denies change in libido Neuro Denies syncope Psych Denies change in libido Endo Denies change in libido Physical Exam Const General: cooperative, healthy appearing, comfortable and no acute distress Orientation/consciousness: patient oriented x3 HEENT Face and sinus: Yes normal facial exam Mouth: moist mucous membranes Neck Neck: Yes normal visual inspection, Yes full ROM and Yes trachea midline Chest Chest palpation & inspection: normal inspection of the chest Resp Effort & Inspection: normal respiratory effort, able to speak in complete sentences and no respiratory distress GI Inspection: Yes normal to inspection Back/Spine/Pelvis Cervical Spine: normal cervical lordosis Thoracic/Lumbar Spine: thoracic and lumbar spine normal to inspection Skin General skin exam: no rashes or lesions noted Neuro General: patient oriented x3, gait normal, tone normal and moves all extremities Extrem General: Yes normal to inspection and Yes capillary refill normal Assessment & Plan Assessment & Plan (1) Anxiety about health: Code(s): R45.89 - Other symptoms and signs involving emotional state Category: Medical Plan P.r.n. follow-up Patient Instructions: This note is constructed using voice recognition software. While every effort has been made to ensure accuracy laboratory worker errors may have been included. Imaging studies, laboratory and physical exam results were discussed and reviewed in detail. No major barriers to patient understanding were identified. An opportunity to ask questions regarding the treatment plan was provided. All questions were answered. The patient expressed understanding and agreement with the above treatment plan. The patient is aware they should contact our office by phone for worsening of their current condition or the appearance of new urologic symptoms. Compliance is encouraged with any medications and followup testing that is ordered. It is a privilege to participate in the urologic care of your patient. If you have any questions or concerns regarding treatment for the above conditions, or other urologic issues, please do not hesitate to contact me. The office telephone contact is [phone]. Sincerely, Dr Dave Lemos MD, [facility] - Urology Compassionate Specialist Care for the Genitourinary System Coding Level of Care Code Est Pt Level 3 (12981) Diagnoses Anxiety about health R45.89
--- OUTSIDE RECORDS SUMMARY | 2025-01-27 16:47 | XMS_ITS | Continuity of Care Document ---
Author Name [facility] Organization [facility] Care Team Providers Care Acid Regenerator Name Role Phone [facility] Unavailable Unavailable Problems Combined list of problems from 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 It does not include entries that were removed or entered in error. Problem Status Onset Date Problem Type Date of Resolution Comments Source Other specified postprocedural states Active 06/25/2024 Diagnosis [id number]-[id number] 6th [facility] Encounter for issue of other medical certificate Active 06/23/2024 Diagnosis 7379C-[facility] Nicotine dependence Active Condition 03 10C-AF-C-6 6th [facility] Other specified postprocedural states Active Condition [id number]-JK-X-6 6th [facility] Medications Combined list of outpatient medications from 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Medications provided include 1) outpatient medications from the last 15 months, and 2) patient-reported medications. Medication Details Route Status Patient Instructions Prescription Expires Prescription Number Last Dispense Date Ordering Provider Order Date Order Qty Source ascorbic acid 500 mg oral tablet TAKE 1 TABLET BY MOUTH TWICE A DAY DIRECTED , # 180 EA, 3 total refill(s ), Acute Discont inued 03/22/2023 2 2022 180.0 Ambulat ory Pharmac y diazePAM 2 mg oral tablet 1 tab(s), Oral, BID, 0 total refill(s ), Maintena nce Oral (given by mouth) Ordered 2024 Ambulat ory Pharmac y ocular lubricant ophthalmic gel INSTILL 1 DROP IN SURGICAL EYE(S) BEFORE SLEEP DIRECTED AFTER SURGERY, # 30 EA, 5 total refill(s ), Acute Complet ed 07/02/2023 2 2022 30.0 Ambulat ory Pharmac y ocular lubricant ophthalmic solution INSTILL 1 DROP IN SURGICAL EYE(S) DIRECTED , # 90 EA, 5 total refill(s ), Acute Discont inued 03/22/2023 2 2022 90.0 Ambulat ory Pharmac y ocular lubricant ophthalmic solution USE 1 DROP IN EACH EYE EVERY HOUR OR NEEDED FOR CORNEAL DRYNESS AFTER SURGERY, # 150 EA, 2 total refill(s ), Acute Complet ed 12/31/2022 2 2022 150.0 Ambulat ory Pharmac y Refresh Tears 0.5% ophthalmic solution 1 drop(s), Eye-Both , QID, PRN dry eyes, # 15 mL, 6 total refill(s ), Maintena nce, Pharmacy : [facility] Both eyes Ordered 4 2023 15.0 0310C-A F-C-66t h [facility] traMADol 50 mg oral tablet 1 tab(s), Oral, every 12 hr, PRN pain, 0 total refill(s ), Maintena nce Oral (given by mouth) Ordered 2024 Ambulat ory Pharmac y Immunizations Combined list of available immunizations from the 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 Immunization Series Date Given Administered By Site Reaction Lot Number CVX Code Drug Coat Repair Inspector Status Comments Source influenza, seasonal, injectable-pf 2023 ZARIABBECKFOR D 140 complet ed Result Comment: Route: Unknown Manufactu rer: OTH (IDB) 0A-A F-C-66t h [facility] influenza, injectable, quadrivalent 2021 NATGEORGI [id number] comple t ed Result Comment: Route: Unknown Manufactu rer: Seqirus (SEQ) 0C-A F-C-66t h [facility] influenza, injectable, quadrivalent 2020 [id number] 158 GlaxoSmithKli ne complet ed influenza , injectabl e, quadrival ent 06/29/21 Given Ambulat ory Pharmac y influenza, injectable, quadrivalent 2020 [id number] 158 GlaxoSmithKli ne complet ed influenza , injectabl e, quadrival ent 06/29/21 Given Ambulat ory Pharmac y COVID Vaccine Moderna 2020 [id number] 207 complet ed COVID Vaccine Moderna 03/03/21 Given Ambulat ory Pharmac y COVID Vaccine Moderna 2020 [id number] 207 complet ed COVID Vaccine Moderna 03/03/21 Given Ambulat ory Pharmac y COVID Vaccine Moderna 2020 [id number] 207 complet ed COVID Vaccine Moderna 01/22/21 Given Ambulat ory Pharmac y COVID Vaccine Moderna 2020 [id number] 207 complet ed COVID Vaccine Moderna 01/22/21 Given Ambulat ory Pharmac y influenza, seasonal, injectable 2019 TRANSCR IBED 141 Seqirus complet ed influenza , seasonal, injectabl e 08/26/20 Given Ambulat ory Pharmac y Influenza, inj, MDCK, quadrivalent- pf 2019 171 complet ed Influenza , inj, MDCK, quadrival ent-pf 08/26/20 Given Ambulat ory Pharmac y influenza, seasonal, injectable 2019 TRANSCR IBED 141 Seqirus complet ed influenza , seasonal, injectabl e 08/26/20 Given Ambulat ory Pharmac y influenza virus vaccine, inactivated 2019 [id number] 88 comple t ed Result Comment: Route: Unknown Manufactu rer: Seqirus (SEQ) 0310C-A F-C-66t h [facility] influenza, injectable, quadrivalent- pf 2018 [id number] 150 Seqirus complet ed influenza , injectabl e, quadrival ent-pf 09/18/19 Given Ambulat ory Pharmac y influenza, injectable, quadrivalent- pf 2018 [id number] 150 Seqirus complet ed influenza , injectabl e, quadrival ent-pf 09/18/19 Given Ambulat ory Pharmac y influenza, injectable, quadrivalent- pf 2017 [id number] Seqirus complet ed influenza , injectabl e, quadrival ent-pf 08/14/18 Given Ambulat ory Pharmac y influenza virus vaccine, inactivated 2016 [id number] 88 Seqirus complet ed influenza virus vaccine, inactivat ed 08/29/17 Given Ambulat ory Pharmac y influenza virus vaccine, inactivated 2016 [id number] 88 Seqirus complet ed influenza virus vaccine, inactivat ed 08/29/17 Given Ambulat ory Pharmac y hepatitis A-hepatitis B vaccine 2016 [id number] [employer] ne complet ed hepatitis A-hepatit is B vaccine 10/17/16 Given Ambulat ory Pharmac y hepatitis A-hepatitis B vaccine 2016 [id number] 104 GlaxoSmithKli ne complet ed hepatitis A-hepatit is B vaccine 10/17/16 Given Ambulat ory Pharmac y influenza, seasonal, injectable-pf 2015 [id number] 140 Seqirus complet ed influenza , seasonal, injectabl e-pf 08/01/16 Given Ambulat ory Pharmac y influenza, seasonal, injectable-pf 2015 [id number] 140 Seqirus complet ed influenza , seasonal, injectabl e-pf 08/01/16 Given Ambulat ory Pharmac y hepatitis A-hepatitis B vaccine 2015 [id number] 104 GlaxoSmithKli ne complet ed hepatitis A-hepatit is B vaccine 04/30/16 Given Ambulat ory Pharmac y hepatitis A-hepatitis B vaccine 2015 [id number] 104 GlaxoSmithKli ne complet ed hepatitis A-hepatit is B vaccine 04/30/16 Given Ambulat ory Pharmac y hepatitis A-hepatitis B vaccine 2015 [id number] 104 GlaxoSmithKli ne complet ed hepatitis A-hepatit is B vaccine 04/30/16 Given Ambulat ory Pharmac y hepatitis A-hepatitis B vaccine 2015 [id number] 104 GlaxoSmithKli ne complet ed hepatitis A-hepatit is B vaccine 03/21/16 Given Ambulat ory Pharmac y hepatitis A-hepatitis B vaccine 2015 [id number] 104 GlaxoSmithKli ne complet ed hepatitis A-hepatit is B vaccine 03/21/16 Given Ambulat ory Pharmac y hepatitis A-hepatitis B vaccine 2015 [id number] 104 GlaxoSmithKli ne complet ed hepatitis A-hepatit is B vaccine 03/21/16 Given Ambulat ory Pharmac y adenovirus vaccine, live 2015 [id number] 143 Teva Pharmaceutica ls complet ed adenoviru s vaccine, live 03/16/16 Given Ambulat ory Pharmac y meningococcal A,C,Y,W-135 (MCV4P) 2015 [id number] 114 sanofi pasteur complet ed meningoco ccal A,C,Y,W-1 35 (MCV4P) 03/16/16 Given Ambulat ory Pharmac y tetanus, diphtheria, acellular pertu is 2015 [id number] 115 GlaxoSmithKli ne complet ed tetanus, diphtheri a, acellular pertussis 03/16/16 Given Ambulat ory Pharmac y poliovirus vaccine, inactivated 2015 [id number] 10 sanofi pasteur complet ed polioviru s vaccine, inactivat ed 03/16/16 Given Ambulat ory Pharmac y influenza, injectable, quadrivalent 2015 [id number] 158 GlaxoSmithKli ne complet ed influenza , injectabl e, quadrival ent 03/16/16 Given Ambulat ory Pharmac y influenza, injectable, quadrivalent 2015 [id number] 158 GlaxoSmithKli ne complet ed influenza , injectabl e, quadrival ent 03/16/16 Given Ambulat ory Pharmac y tetanus, diphtheria, acellular pertu is 2015 [id number] 115 GlaxoSmithKli ne complet ed tetanus, diphtheri a, acellular pertussis 03/16/16 Given Ambulat ory Pharmac y adenovirus vaccine, live 2015 [id number] 143 Teva Pharmaceutica ls complet ed adenoviru s vaccine, live 03/16/16 Given Ambulat ory Pharmac y meningococcal A,C,Y,W-135 (MCV4P) 2015 [id number] 114 sanofi pasteur complet ed meningoco ccal A,C,Y,W-1 35 (MCV4P) 03/16/16 Given Ambulat ory Pharmac y poliovirus vaccine, inactivated 2015 [id number] 10 sanofi pasteur complet ed polioviru s vaccine, inactivat ed 03/16/16 Given Ambulat ory Pharmac y tuberculin purified protein derivative 2015 SABIHA [id number] 96 comple t ed Result Comment: Route: Unknown Manufactu rer: OTH ([facility]) 0310C-A F-C-66t h [facility] Results Combined list of recent chemistry, hematology and other laboratory results from Department of Defense and Veterans Affairs, ranging from 15 months to all on record, depending upon the facility. Order Name Results Value Reference Range Date Interpretation Specimen Comments Source Miscellan eous Sendouts Repository Sample Received (03/13/24 10:04 AM) 03/13 N 5600A-U [facility] Infectiou s Disease HIV-1/O/2 Non-Reac tive 1 (03/13/24 10:04 AM) 03/13 N Interpretiv e Data: INTERPRETAT ION: This method is a screening procedure for the detection of HIV p24 Antigen and Antibodies to HIV-1, including Group O, and/or HIV-2. NON-REACTIV E: HIV-1 antigen and HIV-1 / HIV-2 antibodies were not detected. No laboratory evidence of HIV infection. A negative test result does not exclude the possibility of exposure to or infection with HIV. HIV antibodies and/or p24 antigen may be undetectabl e in some stages of the infection and in some clinical conditions. If acute HIV infection is suspected, consider submitting another specimen to a reference laboratory for HIV-1 RNA. SCREEN REACTIVE - CONFIRMATIO N TO FOLLOW: Possible presence of HIV-1antibo dies, HIV-2 antibodies and/or HIV-1 p24 antigen. Specimen will reflex to the confirmatio n testing that fulfills the Center for Disease Control and Prevention' s HIV diagnostic algorithm. Refer to [facility] Guide for additional information : [email or web address]. [employer]/ kj/kx5/EPIL ab/[email or web address]/la [email or web address].asp x Testing performed by [employer] lakia carr. 5600A-U WILL[facility] Encounters Combined list of: 1) Encounters from Department of Veterans Affairs facilities going backup to the last 18 months, not all VA inpatient encounters are included; 2) Encounters from the Department of Defense facilities going backup to 280 months. Location Location Details Encounter Type Encounter Number Reason For Visit Attending Provider ADM Date DC Date Status Disposition Source 031- C [facility] Between Visit [id number] 05/12 Discharge Disposition: Home or Self Care 0310C-A F-C-66t h [facility] 7379C-Kim [facility] [id number] [place] for issue of other medical certifi yvan CALZADA HENDERSON 06/23 Discharge Disposition: Home or Self Care 7379C-L [facility] 0310AF- C [facility] [id number] Other specifi ed postpro cedural states LE SMITH 06/25 Discharge Disposition: Home or Self Care 0310C-A F-C-66t h [facility] 0310A-AF- C-66th [facility] Between Visit [id number] 08/27 Discharge Disposition: Home or Self Care 0310A-A F-C-66t h [facility] 0310C-AF- C-66th [facility] Between Visit [id number] 10/26 Discharge Disposition: Home or Self Care 0310C-A F-C-66t h [facility] Procedures Combined list of: 1) Procedures from Department of Veterans Affairs facilities going back up to thelast 18 months, not all [place] non-surgical procedures are included; 2) All procedures from the Department of Defense facilities. Procedure Procedure Type Code Date Perfomer Comments Sour e WTEx4 [id number]-66th [facility] PRK Jun 2022 8156T-OG-M-66th [facility] PURE TONE AUDIOMTRY THRESHOLD COMPUTER DEV AIR PURE TONE AUDIOMTRY THRESHOLD COMPUTER DEV AIR 0208T 6074V-UP-P-66th [facility] Removal impacted cerumen using irrigation/lavage, unilateral Removal impacted cerumen using irrigation/lavage, unilateral 62827 3975N-ZR-X-66th [facility] Removal impacted cerumen (separate procedure), one or both ears Removal impacted cerumen (separate procedure), one or both ears 47916 9102N-BA-G-66th [facility] Social History Combined list of available smoking, tobacco, and other social history from 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 Social History Type Response Date Comment [facility] e Sex Representation Male (finding) 07/27/2022 Un known Organization Tobacco Former-cigarette user Cigarette use:. 1.5 Average PACKS per day: (10 cigarettes = 0.5 packs). 12 Total years of smoking cigarettes:. Yes-current everyday other tobacco user (not cigarettes) Other Tobacco use:. SM reports +Nicotine use vapng x2 years; SM reports Hx of cigarette smoking 1.5 PPD x12 yesr quit 2020. Ambulatory Pharmacy Sexual Orientation Ambula tory Pharmacy Gender identity Ambulator y Pharmacy Assessment and Plan Combined list of future care activities from Department of Defense and Veterans Affairs facilities (e.g., assessment and plan notes, appointments, orders, and referrals). Additional future care activities may be listed in the Plan of Care section. Result Assessment and Plan Date Source Assessment and Plan Extracted from:Title : Eye Care Office Visit Note - REE no DFE Author: LE GUEVARA, OD Date: 06/25/24 1.?Other specified postprocedural states S/P PRK 2 years ago with great outcome. Notes some moderate dry eye off and on. Rx Refresh one drop OUQID when eyes are feeling dry or with excessive near work. No path w/out DFE. See back in 1 year with DFE. Ordered: ocular lubricant(Refresh Tears 0.5% ophthalmic solution), 1 drop(s), Eye-Both, QID, PRN dry eyes, # 15 mL, 6 total refill(s), Maintenance, 1 drop(s) Eye-Both QID,PRN:dry eyes, Pharmacy: [facility] [Not filled] ? Extracted from:Title: MHA PHA Author: YULY TILLEY, ROSA Date: 06/23/24 1.?Encounter for issue of other medical certificate Assessment and Plan Reviewed documentation of height and weight, current medical conditions and deployment related health problems, to include screening for traumatic brain injury exposure, allergies, medications, required immunizations, medical readiness laboratory tests, audiology, and optometry examinations. Completed screenings and provided patient education as appropriate. ? Assessed and reviewed SM responses to?screening tools: ? AUDIT-C = 2 PCL-C? = 0 PHQ-8? = 0 (no elevated risk) ? At this time no tasking or consults needed. Patient aware of services available ([phone], ??[facility], [employer], Walk in , Walk in ER, Notify chain of command, etc) and how to contact them if needed. SM denies suicidal and homicidal ideation.? Preventative services reviewed and discussed per age, race, and gender. Reviewed immunization history and assessed immunization status. Reviewed physical activity including aerobic and isometric exercises. ?Reviewed risk sexual risk factors and previous STD testing date, including HIV, and assessed as not at significant risk for acquiring STDs including HIV infection. Reviewed readiness labs and examinations needed including recommendation for lipid screening every 5 years beginning at age 35. Compared medications reported by building serviceman to active medication list in MHSG/JLV and any variances were documented.?SM notified of need for influenza vaccine when available to SM. ? Any complaints or issues identified while conducting the PHA have been addressed and/or referred back to the patients' PCM for care. ?rail crew member advised to follow up with PCM, Behavioral Health, ED/911, or [facility] as needed for continuation of care, and/or further evaluation during exacerbations of physical and/or psychological illness or injury. See PHA document for additional information. Twenty four minutes of total time spent reviewing records and discussing health concerns and preventative health measures with Police Liaison Officer. ? 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 SM Not present for admin encounter. All age/gender specific CPS IAW USPSTF are up to date. No profiles, no DLCs. IMR Green.? +WWQ.? 2.?Nicotine dependence Nicotine cessation highly encouraged/advised; F/U with PCM/BHOP?as needed. Kimberli Wilhelm CTR?SAFE TECHNICIAN-C [facility] Provider Flight Medicine? ?[facility] [place], [place]??[address] [employer] [phone] ? 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 SM?present for virtual encounter. NO MH Hx or current care. No indication for any MH referrals. Denies SI/HI. No profiles, no DLCs. IMR Green.? 2.?Nicotine dependence Nicotine cessation highly encouraged/advised; F/U with PCM/BHOP?as needed. Kimberli Wilhelm CTR?SAFE TECHNICIAN-C [facility] Provider Flight Medicine? ?[facility] [place] [facility] [phone] ? Extracted from:Title: Eye Care Office Visit Note - CRS POM8 with DFE Author: LE GUEVARA, OD Date: 02/20/23 1.?Other specified postprocedural states S/P PRK POM8 with great refractive outcome. No Rx. No path w/ DFE. Noted small pocket of SPK inferiorly OU. Continue with RP PRN and Celluvisc QHS PRN. F/U 4 months for POM12 exam.?Continue w/ UV protection. 01/27/2025 2089T-FI-O-[facility] Assessment and Plan Extracted from:Title : Eye Care Office Visit Note - REE no DFE Author: LE GUEVARA, OD Date: 06/25/24 1.?Other specified postprocedural states S/P PRK 2 years ago with great outcome. Notes some moderate dry eye off and on. Rx Refresh one drop OUQID when eyes are feeling dry or with excessive near work. No path w/out DFE. See back in 1 year with DFE. Ordered: ocular lubricant(Refresh Tears 0.5% ophthalmic solution), 1 drop(s), Eye-Both, QID, PRN dry eyes, # 15 mL, 6 total refill(s), Maintenance, 1 drop(s) Eye-Both QID,PRN:dry eyes, Pharmacy: [facility] [Not filled] ? Extracted from:Title: MHA PHA Author: YULY TILLEY NP Date: 06/23/24 1.?Encounter for issue of other medical certificate Assessment and Plan Reviewed documentation of height and weight, current medical conditions and deployment related health problems, to include screening for traumatic brain injury exposure, allergies, medications, required immunizations, medical readiness laboratory tests, audiology, and optometry examinations. Completed screenings and provided patient education as appropriate. ? Assessed and reviewed SM responses to?screening tools: ? AUDIT-C = 2 PCL-C? = 0 PHQ-8? = 0 (no elevated risk) ? At this time no tasking or consults needed. Patient aware of services available ([phone], ??[facility], [employer], Walk in , Walk in ER, Notify chain of command, etc) and how to contact them if needed. SM denies suicidal and homicidal ideation.? Preventative services reviewed and discussed per age, race, and gender. Reviewed immunization history and assessed immunization status. Reviewed physical activity including aerobic and isometric exercises. ?Reviewed risk sexual risk factors and previous STD testing date, including HIV, and assessed as not at significant risk for acquiring STDs including HIV infection. Reviewed readiness labs and examinations needed including recommendation for lipid screening every 5 years beginning at age 35. Compared medications reported by building serviceman to active medication list in MHSG/JLV and any variances were documented.?SM notified of need for influenza vaccine when available to SM. ? Any complaints or issues identified while conducting the PHA have been addressed and/or referred back to the patients' PCM for care. ?rail crew member advised to follow up with PCM, Behavioral Health, ED/911, or [facility] as needed for continuation of care, and/or further evaluation during exacerbations of physical and/or psychological illness or injury. See PHA document for additional information. Twenty four minutes of total time spent reviewing records and discussing health concerns and preventative health measures with Police Liaison Officer. ? 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 SM Not present for admin encounter. All age/gender specific CPS IAW USPSTF are up to date. No profiles, no DLCs. IMR Green.? +WWQ.? 2.?Nicotine dependence Nicotine cessation highly encouraged/advised; F/U with PCM/BHOP?as needed. Kimberli Wilhelm CTR?SAFE TECHNICIAN-C [facility] Provider Flight Medicine? ?[place]??[address] [employer] [phone] ? 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 SM?present for virtual encounter. NO MH Hx or current care. No indication for any MH referrals. Denies SI/HI. No profiles, no DLCs. IMR Green.? 2.?Nicotine dependence Nicotine cessation highly encouraged/advised; F/U with PCM/BHOP?as needed. Kimberli Wilhelm CTR?SAFE TECHNICIAN-C [facility] Provider Flight Medicine? ?[employer] [place], [place]??[address] [facility] [phone] ? Extracted from:Title: Eye Care Office Visit Note - CRS POM8 with DFE Author: LE GUEVARA, OD Date: 02/20/23 1.?Other specified postprocedural states S/P PRK POM8 with great refractive outcome. No Rx. No path w/ DFE. Noted small pocket of SPK inferiorly OU. Continue with RP PRN and Celluvisc QHS PRN. F/U 4 months for POM12 exam.?Continue w/ UV protection. 01/27/[address] [place] [address] Functional Status Combined list of recent functional and cognitive assessments recorded at Department of Defense and Veterans Affairs (VA).VA Functional Sherborn Measurement (FIM) Scale: 1 = Total Assistance (Subject = 0% +), 2 = Maximal Assistance (Subject = 25% +), 3 = Moderate Assistance (Subject = 50% +), 4 = Minimal Assistance (Subject = 75% +), 5 = Supervision, 6 = Modified Sherborn (Device), 7 = Complete Sherborn (Timely, Safely). Assessment Date/Time Source Assessment Type Assessment Skill Assessment Score Assessment Details No data available for this section
== END 2025-01-27 14:20 | disposition home or self-care (01) ==
LOC: HO.HUSH 14:02
PROVIDERS: PCP Internal Medicine; Visit Provider Urology
DX: R45.89 Other symptoms and signs involving emotional state (principal)
CPT/HCPCS: 99213

== ENCOUNTER → 2025-01-27 14:01 | Outpatient (BNVA) | payer OTHER, SELFPAY | PROVIDERS: PCP Internal Medicine; Visit Provider Urology | DX: R45.89 Other symptoms and signs involving emotional state (principal); Z98.52 Vasectomy status | CPT/HCPCS: 99212 ==

== ENCOUNTER 2025-02-01 12:58 | Outpatient (AMB) | payer OTHER, SELFPAY ==
--- NOTE | 2025-02-01 13:01 | MHC.OFFWIV ---
Intake Vital Signs 02/01/25 13:02 Weight 163 lb BP 120/88 Blood Pressure Location Lt brachial Position Sitting Pulse 67 Pulse Source Pulse Oximeter Pulse Oximetry (%) 98 Oxygen Delivery Method Room Air Intake Visit Reasons: EP-rt arm & shoulder pain Intake Note: Patient here for right arm/shoulder pain that has been present for about 1 week, numbness and tingling in elbow and hand. Patient Tobacco Use Status: Former Tobacco user Allergies No Known Allergies Allergy (Verified 02/01/25 13:04) Do you need a note to return to daycare/school/sports/work: No HPI HPI Comments History of Present Illness Details History of Present Illness - The patient is a 29-year-old male with a past med hx of anxiety disorder, attention deficit disorder, and fatigue presenting with numbness and tingling of the right arm and muscle spasm on right side of neck - The patient reports experiencing muscle spasms in the right arm for the past five days, which are momentarily relieved by heat but recurrent when heat is removed. - There is numbness and tingling in the right arm noted four days ago, mostly affecting the 2nd and 3rd digits, with no accompanying loss of strength or sensation. - He has had previous episodes of spasms manageable with muscle relaxants, though not effective presently. Physical Exam General: Cooperative, healthy appearing, comfortable, no acute distress and well developed Orientation: Patient oriented x3 Limitations: No limitations Head: Normal to inspection Ears: Hearing grossly normal bilaterally Nose: Normal External nose present Face and sinus: Normal facial exam Eyes: Appearance normal, both eyes and all related structures Neck: Normal visual inspection and Yes full ROM Respiratory: Normal respiratory effort and able to speak in complete sentences. Skin: No rashes or lesions noted Neuro: Patient oriented x3 Back/spine: no TTP cervical, thoracic or lumbar spine, notable right sided cervical muscle spasm Extremities: Normal to inspection,full ROM right shoulder, elbow, wrist and fingers, no loss of strength or sensation entire right arm [facility] History Anxiety Attention deficit Fatigue Daytime somnolence Surgical History History of photorefractive keratectomy (PRK) Family History Father Hypertension Mother Diabetes Social History Housing: House Alcohol intake: former Patient Tobacco Use Status: Former Tobacco user Tobacco use type: Cigarette e-Cigarette/Vaping Use: Currently Using Second Hand Smoke Exposure: Yes service: Yes Current occupational status: employed Cognitive needs: No Hearing needs: No Vision needs: Yes Review of Systems Const All systems reviewed & are unremarkable except as noted in HPI and below Physical Exam Vital Signs: Last Vital Signs Pulse 67 02/01/25 13:02 BP 120/88 02/01/25 13:02 Pulse Ox 98 02/01/25 13:02 Oxygen Delivery Method Room Air 02/01/25 13:02 Assessment & Plan Assessment & Plan (1) Cervical paraspinal muscle spasm: Code(s): M62.838 - Other muscle spasm Plan: The patient's muscle spasms and right arm paresthesia are noted to be resistant to prior successful muscle relaxant therapy, necessitating the evaluation of underlying conditions contributing to these symptoms. Sent muscle relaxer and Aleve to pharmacy to use for 3-4 days ATC, then PRN. Using ice and heat, as needed. Evaluation findings and therapeutic decisions should be comprehensively discussed with the patient as needed. Patient was informed and verbally consented to the use of an ambient scribe for clinic note documentation during this visit. (2) Cervical radiculopathy: Code(s): M54.12 - Radiculopathy, cervical region Plan: as above Medications: New naproxen 500 mg PO Q12H PRN 20 tabs 0RF pain cyclobenzaprine 5 mg PO Q8H PRN 20 tabs 0RF Muscle Spasm Coding Level of Care Code Est Pt Level 3 (31013) Diagnoses Cervical paraspinal muscle spasm M62.838 Cervical radiculopathy M54.12
[2025-02-01 13:02] VITALS: BP 120/88; PULSE 67; O2SAT 98
== END 2025-02-01 13:36 | disposition home or self-care (01) ==
PROVIDERS: PCP Internal Medicine; Visit Provider Physician Assistant
DX: M62.838 Other muscle spasm (principal); M54.12 Radiculopathy, cervical region

== ENCOUNTER → 2025-02-01 12:58 | Outpatient (BNVA) | payer OTHER, SELFPAY | PROVIDERS: PCP Internal Medicine; Visit Provider Physician Assistant | DX: M62.838 Other muscle spasm (principal); M54.12 Radiculopathy, cervical region | CPT/HCPCS: 99212 ==

== ENCOUNTER 2025-02-19 14:34 | Outpatient (REF) | payer OTHER, SELFPAY ==
--- NOTE | ~2025-02-19 | XR_ITS ---
EXAMINATION: XR SHOULDER, RIGHT CLINICAL INFORMATION: M25.511 - Pain in right shoulder COMPARISON: None available. TECHNIQUE: AP external rotation, Grashey, scapular Y, and axillary views of the right shoulder. FINDINGS: Normal bone mineralization. No fracture, dislocation, or suspicious bone lesion. Normal alignment. The glenohumeral joint is normal. The AC joint is normal. There is a type I acromion. No undersurface spurring. The subacromial space is preserved. Remainder of the soft tissue and bony structures appear normal. XR/XR shoulder RT min 2V IMPRESSION: Normal right shoulder. Electronically signed by: Armando Jenkins MD 02/22/2025 08:08 AM EDT RP
--- OUTSIDE RECORDS SUMMARY | 2025-02-19 15:34 | XMS_ITS | Continuity of Care Document ---
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 Automated Threshold Audiogram (Pure Tone) Automated 0208T 018 IRENE SANCHEZ Patient education, not otherwise cla ified, non-physician provider, group, per se ion 018 IRENE SANCHEZ Spectacles Services Fitting Monofocals (Not For Aphakia) [facility] Fitting Monofocals (Not For Aphakia) [id number] 018 LUMA BLACK Determination Of Refractive State Determination Of Refractive State [id number] [id number] LUMA BLACK Ophthalmological Prior Patient Start Comprehensive Care Ophthalmological Prior Patient Start Comprehensive Care [id number] [id number] LUMA BLACK Wrist hand finger orthosis, without joint(s), prefabricated, [id number], any type 017 LUMA VARGHESE Threshold Audiogram (Pure Tone) Threshold Audiogram (Pure Tone) [id number] [id number] WENDY LOZANO Threshold Audiogram (Pure Tone) Automated Threshold Audiogram (Pure Tone) Automated 0208T 017 IRENE SANCHEZ Patient education, not otherwise cla ified, non-physician provider, group, per se ion 017 IRENE SANCHEZ Prescription & Fitting Bilateral Corneal Lenses (Not Aphakia Prescription & Fitting Bilateral Corneal Lenses (Not Aphakia 80091 017 LUMA BLACK [employer] [facility] Fitting Monofocals (Not For Aphakia) [facility] Fitting Monofocals (Not For Aphakia) 67881 017 LUMA BLACK Determination Of Refractive State Determination Of Refractive State 41718 017 LUMA BLACK Ophthalmological New Patient Start Comprehensive Care Ophthalmological New Patient Start Comprehensive Care [id number] 017 LUMA BLACK Audiogram (Screening) Audiogram (Screening) [address]Supervised Group Educational Services -Supervised Group Educational Services 55307 CECILIA HARRIS Ear mold/insert, disposable, any type CECILIA HARRIS Threshold Audiogram (Pure Tone) Automated Threshold Audiogram (Pure Tone) Automated 0208T CELY LOPEZ Cerumen Removal Left Ear Irrigation Cerumen Removal Left Ear Irrigation 90896 016 SAIDA CONTE Cerumen Removal Right Ear Irrigation Cerumen Removal Right Ear Irrigation 11817 016 SAIDA CONTE Cerumen Removal Left Ear Curette Cerumen Removal Left Ear Curette 61821 016 SAIDA CONTE Cerumen Removal Right Ear Curette Cerumen Removal Right Ear Curette 50228 016 SAIDA CONTE Screening Test Of Visual Acuity, Quantitative, Bilateral Screening Test Of Visual Acuity, Quantitative, Bilateral 36222 016 MIGUEL WIGGINS Determination Of Refractive State Determination Of Refractive State 34711 016 MIGUEL WIGGINS Spectacles Services Fitting Monofocals (Not For Aphakia) [facility] Fitting Monofocals (Not For Aphakia) 45176 016 MIGUEL WIGGINS Ophthalmological Prior Patient Start Comprehensive Care Ophthalmological Prior Patient Start Comprehensive Care 27956 SOLO BARTH Determination Of Refractive State Determination Of Refractive State 11490 SOLO BARTH Prescription & Fitting Bilateral Corneal Lenses (Not Aphakia Prescription & Fitting Bilateral Corneal Lenses (Not Aphakia 92153 SOLO BARTH Spectacles Services Fitting Monofocals (Not For Aphakia) [facility] Fitting Monofocals (Not For Aphakia) 68625 SOLO BARTH Ophthalmological Prior Patient Start Intermediate Level Care Ophthalmological Prior Patient Start Intermediate Level Care 06876 SOLO BARTH I [facility] Brief communication technology-based service, e.g. virtual check-in, [...] Only telephonic assessment; visit lasted 15 minutes. [facility] Computerized Corneal Topography Computerized Corneal Topography 09936 LE GUEVARA [facility] Corneal Pachymetry Both Eyes Corneal Pachymetry Both Eyes 46780 LE GUEVARA Ophthalmological New Patient Start Comprehensive Care Ophthalmological New Patient Start Comprehensive Care 20434 SRINIVAS ARCE Scanning Computerized Ophthalmic Diagnostic Imaging Anterior Segment, Unilateral Scanning Computerized Ophthalmic Diagnostic Imaging Anterior Segment, Unilateral [address].-Supervised Group Educational Services -Supervised Group Educational Services 70816 CATE STEVEN Photorefractive keratectomy (PRK) CATE STEVEN Postoperative Visit, Without Charge Postoperative Visit, Without Charge 90878 SRINIVAS ARCE [id number]-AF- [facility] [employer] PRK Jun [id number]- C[facility] [employer] PURE TONE AUDIOMTRY THRESHOLD COMPUTER DEV AIR PURE TONE AUDIOMTRY THRESHOLD COMPUTER DEV AIR 0208T 0C-AF- [facility] [employer] Removal impacted cerumen using irrigation/lavage, unilateral Removal impacted cerumen using irrigation/lavage, unilateral 29644 0310C-AF- [facility] [employer] Removal impacted cerumen (separate procedure), one or both ears Removal impacted cerumen (separate procedure), one or both ears 44100 0310C-AF- [facility] [employer] Social History Combined list of available smoking, tobacco, and other social history from 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 Social History Type Response Date Comment Sour e Sex Representation Male (finding) 07/27/2022 Un known Organization This section is an empty social history section. [facility] Tobacco Former-cigarette user Cigarette use:. 1.5 Average [...] Note - REE no DFE Author: LE GUEVARA OD Date: 06/25/24 1.?Other specified postprocedural states [...] Maintenance, 1 drop(s) Eye-Both QID,PRN:dry eyes, [facility] ? Extracted [...] of services available ([phone], ??One Source, Demolition Engineer Services, Walk in , Walk in ER, [...] at age 34. Compared medications reported by swimming pool service technician to active medication list in [facility] and any variances were documented.?SM notified of need for influenza vaccine when available to SM. ? Any complaints or issues identified while conducting the PHA have been addressed and/or referred back to the patients' PCM for care. ?bridge crew member advised to follow up with PCM, Behavioral Health, ED/911, or One Source as needed for continuation of care, and/or further evaluation during exacerbations of physical and/or psychological illness or injury. See PHA document for additional information. Twenty four minutes of total time spent reviewing records and discussing health concerns and preventative health measures with Event Representative. ? 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 SM Not present for admin encounter. All age/gender specific CPS IAW USPSTF are up to date. No profiles, no DLCs. IMR Green.? +WWQ.? 2.?Nicotine dependence Nicotine cessation highly encouraged/advised; F/U with PCM/BHOP?as needed. Kimberli Reyes CTR?MOTOR CARRIER INSPECTOR-C [facility] Provider Flight Medicine? ?[facility] [place]??[address] office- [phone] ? 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 SM?present for virtual encounter. NO MH Hx or current care. No indication for any MH referrals. Denies SI/HI. No profiles, no DLCs. IMR Green.? 2.?Nicotine dependence Nicotine cessation highly encouraged/advised; F/U with PCM/BHOP?as needed. Kimberli Reyes CTR?MOTOR CARRIER INSPECTOR-C [facility] Provider Flight Medicine? [address] [place], [place]??[address] [facility] [phone] ? Extracted from:Title: Eye Care Office Visit Note - CRS POM8 with DFE Author: LE GUEVARA, OD Date: 02/20/23 1.?Other specified postprocedural states S/P PRK POM8 with great refractive outcome. No Rx. No path w/ DFE. Noted small pocket of SPK inferiorly OU. Continue with RP PRN and Celluvisc QHS PRN. F/U 4 months for POM12 exam.?Continue w/ UV protection. 02/19/2025 [id number] Assessment and Plan [...] Maintenance, 1 drop(s) Eye-Both QID,PRN:dry eyes, Pharmacy: [facility] [Not filled] ? Extracted from:Title: MHA PHA Author: YULY TILLEY TRAVELING CLERK Date: 06/23/24 1.?Encounter for issue of other [...] of services available ([phone], ??One Source, Demolition Engineer Services, Walk in , Walk in ER, [...] at age 34. Compared medications reported by swimming pool service technician to active medication list in [facility] and any variances were documented.?SM notified of need for influenza vaccine when available to SM. ? Any complaints or issues identified while conducting the PHA have been addressed and/or referred back to the patients' PCM for care. ?bridge crew member advised to follow up with PCM, Behavioral Health, ED/911, or One Source as needed for continuation of care, and/or further evaluation during exacerbations of physical and/or psychological illness or injury. See PHA document for additional information. Twenty four minutes of total time spent reviewing records and discussing health concerns and preventative health measures with Event Representative. ? 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 SM Not present for admin encounter. All age/gender specific CPS IAW USPSTF are up to date. No profiles, no DLCs. IMR Green.? +WWQ.? 2.?Nicotine dependence Nicotine cessation highly encouraged/advised; F/U with PCM/BHOP?as needed. Kimberli Reyes CTR?MOTOR CARRIER INSPECTOR-C [facility] Provider Flight Medicine? [address] [facility], [place]??[address] Office- [phone] ? 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 SM?present for virtual encounter. NO MH Hx or current care. No indication for any MH referrals. Denies SI/HI. No profiles, no DLCs. IMR Green.? 2.?Nicotine dependence Nicotine cessation highly encouraged/advised; F/U with PCM/BHOP?as needed. Kimberli Reyes CTR?MOTOR CARRIER INSPECTOR-C [facility] Provider Flight Medicine? [address] [facility], [place]??[address] Office- [phone] ? Extracted from:Title: Eye Care Office Visit Note - CRS POM8 with DFE Author: LE GUEVARA, OD Date: 02/20/23 1.?Other specified postprocedural states S/P PRK POM8 with great refractive outcome. No Rx. No path w/ DFE. Noted small pocket of SPK inferiorly OU. Continue with RP PRN and Celluvisc QHS PRN. F/U 4 months for POM12 exam.?Continue w/ UV protection. 02/19/[address] [place] [address] Functional Status Combined list of recent functional and cognitive assessments recorded at [facility] and [facility] (VA).VA Functional Lea Measurement (FIM) Scale: 1 = Total Assistance (Subject = 0% +), 2 = Maximal Assistance (Subject = 25% +), 3 = Moderate Assistance (Subject = 50% +), 4 = Minimal Assistance (Subject = 75% +), 5 = Supervision, 6 = Modified Lea (Device), 7 = Complete Lea (Timely, Safely). Assessment Date/Time Source Assessment Type Assessment Skill Assessment Score Assessment Details No data available for this section
== END 2025-02-19 14:35 | disposition home or self-care (01) ==
LOC: HO.XRAY 14:34
PROVIDERS: PCP Internal Medicine
DX: M25.511 Pain in right shoulder (principal)
CPT/HCPCS: 73030; 96127; 99212

== ENCOUNTER 2025-02-19 14:34 | Outpatient (AMB) | payer OTHER, SELFPAY ==
[2025-02-19 14:36] VITALS: BP 104/70; PULSE 66; TEMP 36.3; O2SAT 99; BMI 24.6
--- NOTE | 2025-02-19 14:36 | A.OFFPC_ITS ---
Vital Signs 02/19/25 14:36 Height 5 ft 9 in Weight 166 lb 9.6 oz BMI 24.6 BP 104/70 Blood Pressure Location Lt brachial Position Sitting Pulse 66 Pulse Source Pulse Oximeter Temp 97.3 F Temp Source Oral Pulse Oximetry (%) 99 Oxygen Delivery Method Room Air Intake Visit Reasons: follow up walk in rt shoulder pain [employer] Required: No Accompanied by: Self / Same As Patient Allergies No Known Allergies Allergy (Verified 02/19/25 15:10) Medication List - Last Reconciled 02/19/25 by MARIEL Zuniga No Known Home Meds Tobacco use date assessed: 02/19/25 Dental Screening Dental Screen Date: 02/19/25 Did you have a dental visit in the last 12 months?: Yes Did you have a dental problem in the last 6 months where you did not have access to dental care?: No Was dental information given to patient?: Patient has dentist HPI follow up walk in rt shoulder pain HPI Details The patient is a 29-year-old male presenting with right upper extremity numbness and right shoulder discomfort. The symptoms began shortly before , following activities including heavy weightlifting and yoga. Initially, the patient perceived a muscle spasm which progressed to include constant numbness extending to the fingers, worsened by activity. The patient notes diminished strength and functionality, impacting activities like basketball and bowling. Treatment with a muscle relaxant and naproxen provided some relief for shoulder pain but was ineffective for the numbness and shoulder discomfort. The shoulder exhibited inflammation compared to the contralateral side but lacked redness or documented injury. The patient associates the symptoms with previous physical activities, potentially aggravated by weightlifting. [facility] Medical History Anxiety Attention deficit Fatigue Daytime somnolence Surgical History History of photorefractive keratectomy (PRK) Family History Father Hypertension Mother Diabetes Social History Housing: House Alcohol intake: former Patient Tobacco Use Status: Former Tobacco user Tobacco use type: Cigarette e-Cigarette/Vaping Use: Currently Using (Vape) Second Hand Smoke Exposure: Yes service: Yes ( [employer]) Current occupational status: employed Cognitive needs: No Hearing needs: No Vision needs: No Questionnaire PHQ-9 Over the last 2 weeks, how often have you been bothered by any of the following problems? 1. Little interest or pleasure in doing things: not at all 2. Feeling down, depressed, or hopeless: not at all 3. Trouble falling or staying asleep, or sleeping too much: not at all 4. Feeling tired or having little energy: not at all 5. Poor appetite or overeating: not at all 6. Feeling bad about yourself - or that you are a failure or have let yourself or your family down: not at all 7. Trouble concentrating on things, such as reading the newspaper or watching television: not at all 8. Moving or speaking so slowly that other people could have noticed. Or the opposite - being so fidgety or restless that you have been moving around a lot more than usual: not at all 9. Thoughts that you would be better off or of hurting yourself in some way: not at all Total score: 0 Depression Screening Interpretation: Negative Depression Screening Done: Yes 55520 - PHQ-9 Billing: Yes Source: Developed by Drs. Ricardo White, Marylou Rivera, Phil Patton and colleagues, with an educational braeden from [employer]. Thrive Questionnaire Date Thrive assessed: 02/19/25 I am a: Patient What is your living situation today?: I have a steady place to live Within the past 12 months, did the food you bought not last and you didn't have the money to get more?: Never true Within the past 12 months, did you worry whether your food would run out before you got money to buy more?: Never true Do you have trouble paying for medicines?: No Do you have trouble getting transportation to medical appointments?: No Do you have trouble paying your heating and electricity bill?: No Do you have trouble taking care of your child, family member or friend?: No Do you have trouble with day-to-day activities such as bathing, preparing meals, shopping, managing finances, etc.?: No Are you currently unemployed and looking for a job?: No Are you interested in more education?: No Please select the resources that you would like help with: None Currently or been in a relationship where the following occur: No concerns reported THRIVE Score: 0 AUDIT C Alcohol Use Questionnaire (AUDIT-C) 1. How often do you have a drink containing alcohol?: 2-4 times a month 2. How many drinks containing alcohol do you have on a typical day when you are drinking?: 1 or 2 3. How often do you have six or more drinks on one occasion?: Less than monthly Total Score: 3 Score Reviewed/Action Taken: No CYRIL-7 AMB Questionnaire CYRIL-7 Date CYRIL - 7 assessed: 02/19/25 Feeling nervous, anxious, or on edge: 0 = Not at all Not being able to stop or control worryin = Not at all Worrying too much about different things: 0 = Not at all Trouble relaxin = Not at all Being so restless that it is hard to sit still: 0 = Not at all Becoming easily annoyed or irritable: 0 = Not at all Feeling afraid as if something awful might happen: 0 = Not at all Total CYRIL-7 score (0-4 normal; 5-9 mild; 10-14 moderate; 15-21 severe): 0 Source: Developed by Drs. Ricardo White, Marylou Rivera, Phil Patton and colleagues, with an educational braeden from [employer]. CYRIL-7 Assessment Billing CYRIL-7 Assessment Tool: CYRIL-7 Assessment 28016 Review of Systems Const Denies headache(s) Eyes Denies loss of vision ENT Denies vertigo, Denies dizziness, Denies headache(s) and Reports sore throat Card Denies chest pain, Denies leg edema and Denies lightheadedness Resp Denies cough, Denies hemoptysis and Denies wheezing Musc Reports arthralgias (Right shoulder), Denies joint swelling, Reports numbness (Right arm into fingers) and Reports tingling (Right arm into fingers) Neuro Denies Abnormal speech present, Denies vertigo, Denies dizziness, Denies headache(s), Denies loss of vision, Reports numbness (Right arm into fingers) and Reports tingling (Right arm into fingers) Aller/Immun Denies wheezing Physical exam (Primary Care) Vital Signs: Last Vital Signs Temp 97.3 F 05/09/25 14:36 Pulse 66 02/19/25 14:36 BP 104/70 02/19/25 14:36 Pulse Ox 99 02/19/25 14:36 Oxygen Delivery Method Room Air 02/19/25 14:36 BMI result Body Mass Index 24.6 Tobacco/Smoking Status: Tobacco use Status Tobacco use date assessed 02/19/25 02/19/25 14:42 Patient Tobacco Use Status Former Tobacco user 02/19/25 14:42 Tobacco use type Cigarette 02/19/25 14:42 e-Cigarette/Vaping Use Currently Using (Vape) 02/19/25 14:42 PHQ-9: PHQ-9 Score PHQ-9: Total score 0 02/19/25 15:21 Depression Screening Interpretation: Negative Thrive Assessment: Date of Thrive Assessment Date Thrive assessed 02/19/25 02/19/25 14:42 Currently or been in a relationship where the following occur: No concerns reported Const General: healthy appearing, no acute distress, alert and awake Nutritional Appearance: well nourished Orientation/consciousness: oriented to person, oriented to place and oriented to time HENMT Ears: external ears normal General nose exam: Normal external nose present Eyes Conjunctivae: conjunctivae normal Sclerae: sclerae normal Pupils: Equal, round and reactive pupils present Resp Effort & Inspection: normal respiratory effort and not tachypneic Auscultation: no crackles, no rales, no rhonchi and no wheezes Cardio Rate: regular rate Rhythm: regular rhythm Heart sounds: no murmurs and normal S1 and S2 Neuro General: oriented to person, oriented to place and oriented to time Cranial nerves: Yes Equal, round and reactive pupils present Speech: No Abnormal speech present Gait exam (Neuro): Normal gait present Motor exam (neuro): no tremor noted Extrem Other: Right arm slightly weaker than left: RUE 4.5/5, LUE 5/5 Right upper extremity: full ROM and shoulder/upper arm Details: abnormal ROM Details: pain with passive ROM (mild discomfort with going across chest, negative empty beer can test); no tenderness Left upper extremity: full ROM Coding Level of Care Code Est Pt Level 3 (08431) Diagnoses Right shoulder pain, unspecified chronicity M25.511 Chronicity: unspecified Additional Codes CYRIL-7 Assessment Billing - CYRIL-7 Assessment Tool: CYRIL-7 Assessment 06079 ([id number]) PHQ-9 - 49309 - PHQ-9 Billing: Yes ([id number]) Time Spent (min) 33 Assessment & Plan Assessment & Plan (1) Right shoulder pain: Code(s): M25.511 - Pain in right shoulder Category: Medical Qualifiers: Chronicity: unspecified Qualified Code(s): M25.511 - Pain in right shoulder Plan RIGHT SHOULDER X-RAY ORDERED TO FURTHER EVALUATE. Discussed physical therapy with the patient and the possibility of strengthening in the muscle around the joint. Also, discussed with the patient that a nerve conduction study could be done as well. Shared decision making: Start with the x-ray, then make a decision depending on the results. Orders: Orders XR shoulder RT min 2V 02/19/25 M25.511 - Pain in right shoulder
--- OUTSIDE RECORDS SUMMARY | 2025-02-19 14:37 | XMS_ITS | Continuity of Care Document ---
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 W/IN NEXT 24HR/SOON ELVIA; 5-10 MIN DISC DoD SCREENING TEST, PURE TONE, AIR ONLY DoD EAR MOLD/INSERT, DISPOSABLE, ANY TYPE DoD POSTOPERATIVE FOLLOW-UP VISIT, NORMALLY INCLUDED IN THE SURGICAL PACKAGE, INDICATE THAT EVALUATION & MANAGEMENT SERVICE WAS PERFORMED DURING A POSTOPERATIVE PERIOD REASON RELATED ORIGINAL PROCEDURE DoD PHOTOREFRACTIVE KERATECTOMY (PRK) DoD SCANNING COMPUTERIZED OPHTHALMIC DIAGNOSTIC IMAGING, ANTERIOR SEGMENT, WITH INTERPRETATION AND REPORT, UNILATERAL OR BILATERAL DoD OPHTHALMIC ULTRASOUND, ECHOGRAPHY, DIAGNOSTIC; CORNEAL PACHYMETRY, UNILATERAL OR BILATERAL (DETERMINATION OF CORNEAL THICKNESS) DoD DETERMINATION OF REFRACTIVE STATE DoD DETERMINATION OF REFRACTIVE STATE DoD FITTING OF SPECTACLES, EXCEPT FOR APHAKIA; MONOFOCAL DoD BRIEF EMOTIONAL/BEHAVIORA L ASSESSMENT (EG, DEPRESSION INVENTORY, ATTENTION-DEFICIT/H YPERACTIVITY DISORDER [ADHD] SCALE), WITH SCORING AND DOCUMENTATION, PER STANDARDIZED INSTRUMENT DoD PURE TONE AUDIOMETRY (THRESHOLD), AUTOMATED; AIR ONLY DoD BRIEF EMOTIONAL/BEHAVIORA L ASSESSMENT (EG, DEPRESSION INVENTORY, ATTENTION-DEFICIT/H YPERACTIVITY DISORDER [ADHD] SCALE), WITH SCORING AND DOCUMENTATION, PER STANDARDIZED INSTRUMENT DoD BRIEF EMOTIONAL/BEHAVIORA L ASSESSMENT (EG, DEPRESSION INVENTORY, ATTENTION-DEFICIT/H YPERACTIVITY DISORDER [ADHD] SCALE), WITH SCORING AND DOCUMENTATION, PER STANDARDIZED INSTRUMENT DoD EDUCATION &TRAINING, PATIENT SELF-MGT QUALIFIED, 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 CURRICULUM, OMSE-PL-SURL W THE PATIENT (COULD INCL CAREGIVER/FAMILY) EA 30 MIN; INDIVIDUAL PATIENT DoD BRIEF EMOTIONAL/BEHAVIORA L ASSESSMENT (EG, DEPRESSION INVENTORY, ATTENTION-DEFICIT/H YPERACTIVITY DISORDER [ADHD] SCALE), WITH SCORING AND DOCUMENTATION, PER STANDARDIZED INSTRUMENT DoD PSYCHIATRIC DIAGNOSTIC EVALUATION DoD EDUCATION &TRAINING, PATIENT SELF-MGT QUALIFIED, 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 CURRICULUM, [id number] W THE PATIENT (COULD INCL CAREGIVER/FAMILY) EA 30 MIN; INDIVIDUAL PATIENT DoD BRIEF EMOTIONAL/BEHAVIORA L ASSESSMENT (EG, DEPRESSION INVENTORY, ATTENTION-DEFICIT/H YPERACTIVITY DISORDER [ADHD] SCALE), WITH SCORING AND DOCUMENTATION, PER STANDARDIZED INSTRUMENT DoD ADMINISTRATION OF PATIENT-FOCUSED HEALTH RISK ASSESSMENT INSTRUMENT (EG, HEALTH HAZARD APPRAISAL) WITH SCORING AND DOCUMENTATION, PER STANDARDIZED INSTRUMENT DoD ADMINISTRATION OF PATIENT-FOCUSED HEALTH RISK ASSESSMENT INSTRUMENT (EG, HEALTH HAZARD APPRAISAL) WITH SCORING AND DOCUMENTATION, PER STANDARDIZED INSTRUMENT DoD PURE TONE AUDIOMETRY (THRESHOLD), AUTOMATED; AIR ONLY DoD FITTING OF SPECTACLES, EXCEPT FOR APHAKIA; MONOFOCAL DoD WRIST HAND FINGER ORTHOSIS, WITHOUT JOINT(S), PREFABRICATED, [id number], ANY TYPE DoD PURE TONE AUDIOMETRY (THRESHOLD); AIR ONLY DoD PURE TONE AUDIOMETRY (THRESHOLD), AUTOMATED; AIR ONLY DoD PRESCRIPTION OF OPTICAL AND PHYSICAL CHARACTERISTICS OF AND FITTING OF CONTACT LENS, WITH MEDICAL SUPERVISION OF ADAPTATION; CORNEAL LENS, BOTH EYES, EXCEPT FOR APHAKIA 017 John Internet Med Svc Qual Nonps Healthcare Prof Estab Patient Internet Med Svc Qual Nonphys Healthcare Prof Estab Patient [id number] DENISE TERRY Threshold Audiogram (Pure Tone) Automated Threshold Audiogram (Pure Tone) Automated 0208T 019 IRENE SANCHEZ Patient education, not otherwise cla ified, non-physician provider, group, per se ion 019 IRENE SANCHEZ Social Work Individual Outpatient Counseling 20-30 Minutes Social Work Individual Outpatient Counseling 20-30 Minutes [id number] SOCORRO DE GUZMAN Psychiat Ther Indiv Interactive Approximately 45-50 Minutes Psychiat Ther Indiv Interactive Approximately 45-50 Minutes [id number] 018 ANA MARÍA MUÑOZ Patient Counseling Medical Management Individual Patient Patient Counseling Medical Management Individual Patient [id number] [id number] WENDY WILKINS Internet Med Svc Qual Nonps Healthcare Prof Estab Patient Internet Med Sv Qual Nonps Healthcare Prof Estab Patient [id number] [id number] MICAH MONSIVAIS Threshold Audiogram (Pure Tone) Automated Threshold Audiogram (Pure Tone) Automated 0208T 018 IRENE SANCHEZ Patient education, not otherwise cla ified, non-physician provider, group, per se ion 018 IRENE SANCHEZ Spectacles Services Fitting Monofocals (Not For Aphakia) Spectacles Services Fitting Monofocals (Not For Aphakia) 55252 018 LUMA BLACK Determination Of Refractive State Determination Of Refractive State [id number] LUMA BLACK Ophthalmological Prior Patient Start Comprehensive Care Ophthalmological Prior Patient Start Comprehensive Care [id number] 018 LUMA BLACK Wrist hand finger orthosis, without joint(s), prefabricated, [id number], any type 017 LUMA VARGHESE Threshold Audiogram (Pure Tone) Threshold Audiogram (Pure Tone) [id number] 017 WENDY LOZANO Threshold Audiogram (Pure Tone) Automated Threshold Audiogram (Pure Tone) Automated 0208T 017 IRENE SANCHEZ Patient education, not otherwise cla ified, non-physician provider, group, per se ion 017 IRENE SANCHEZ Prescription & Fitting Bilateral Corneal Lenses (Not Aphakia Prescription & Fitting Bilateral Corneal Lenses (Not Aphakia 42626 LUMA BLACK [employer] Fitting Monofocals (Not For Aphakia) Spectacles Services Fitting Monofocals (Not For Aphakia) 49865 LUMA BLACK Determination Of Refractive State Determination Of Refractive State 42797 LUMA BLACK Ophthalmological New Patient Start Comprehensive Care Ophthalmological New Patient Start Comprehensive Care 85852 LUMA BLACK Audiogram (Screening) Audiogram (Screening) [address]Supervised Group Educational Services -Supervised Group Educational Services 60456 CECILIA HARRIS Ear mold/insert, disposable, any type CECILIA HARRIS Threshold Audiogram (Pure Tone) Automated Threshold Audiogram (Pure Tone) Automated 0208T 016 CELY LOPEZ Cerumen Removal Left Ear Irrigation Cerumen Removal Left Ear Irrigation 93157 016 SAIDA CONTE Cerumen Removal Right Ear Irrigation Cerumen Removal Right Ear Irrigation 03597 016 SAIDA CONTE Cerumen Removal Left Ear Curette Cerumen Removal Left Ear Curette 33274 016 SAIDA CONTE Cerumen Removal Right Ear Curette Cerumen Removal Right Ear Curette 97145 016 SAIDA CONTE Screening Test Of Visual Acuity, Quantitative, Bilateral Screening Test Of Visual Acuity, Quantitative, Bilateral 05126 016 MIGUEL WIGGINS Determination Of Refractive State Determination Of Refractive State 86138 MIGUEL WIGGINS [employer] [facility] Fitting Monofocals (Not For Aphakia) Spectacles Services Fitting Monofocals (Not For Aphakia) 76752 03/21/ 016 MIGUEL WIGGINS [facility] Ophthalmological Prior Patient Start Comprehensive Care Ophthalmological Prior Patient Start Comprehensive Care 07533 RANJITH BARTHAUDREY [place] [facility] Determination Of Refractive State Determination Of Refractive State 52506 TABSOLO I [facility] Prescription & Fitting Bilateral Corneal Lenses (Not Aphakia Prescription & Fitting Bilateral Corneal Lenses (Not Aphakia 57330 TAB SOLO [place] [facility] Spectacles Services Fitting Monofocals (Not For Aphakia) Spectacles Services Fitting Monofocals (Not For Aphakia) 73010 TABRANJITHAUDREY [place] [facility] Ophthalmological Prior Patient Start Intermediate Level Care Ophthalmological Prior Patient Start Intermediate Level Care 04727 TAB SOLO I [facility] Brief communication technology-based service, e.g. virtual check-in, by a physician or other qualified health care profe shahram who can report evaluation and management services, provided to an established patient, not originating from a related E/M service provided within the previous 7 days nor leading to an E/M service or procedure within the next 24 hours or soonest available appointment; 5-10 minutes of medical discu KIMBERLI Henson Damián Only telephonic assessment; visit lasted 15 minutes. [facility] Computerized Corneal Topography Computerized Corneal Topography 73451 LE GUEVARA Corneal Pachymetry Both Eyes Corneal Pachymetry Both Eyes 43125 LE GUEVARA Ophthalmological New Patient Start Comprehensive Care Ophthalmological New Patient Start Comprehensive Care 18647 SRINIVAS ARCE Scanning Computerized Ophthalmic Diagnostic Imaging Anterior Segment, Unilateral Scanning Computerized Ophthalmic Diagnostic Imaging Anterior Segment, Unilateral [address]Supervised Group Educational Services -Supervised Group Educational Services 37779 CATE STEVEN Photorefractive keratectomy (PRK) CATE STEVEN Postoperative Visit, Without Charge Postoperative Visit, Without Charge 43109 SRINIVAS ARCE Social History Combined list of available smoking, tobacco, and other social history from 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 Social History Type Response Date Comment [facility] e Sex Representation Male (finding) 07/27/2022 [...] tory Pharmacy Gender identity Ambulator y Pharmacy This section is an empty social history section. [facility] Assessment and Plan Combined list of future [...] Maintenance, 1 drop(s) Eye-Both QID,PRN:dry eyes, Pharmacy: [facility] [Not [facility]] ? Extracted from:Title: MHA [...] of services available (911, 988, ??[facility], Drugless Doctor Services, Walk in , Walk in ER, [...] at age 34. Compared medications reported by gas appliance servicer helper to active medication list in [facility] and any variances were documented.?SM notified of need for influenza vaccine when available to SM. ? Any complaints or issues identified while conducting the PHA have been addressed and/or referred back to the patients' PCM for care. ?crew team member advised to follow up with PCM, Behavioral Health, ED/911, or One Source as needed for continuation of care, and/or further evaluation during exacerbations of physical and/or psychological illness or injury. See PHA document for additional information. Twenty four minutes of total time spent reviewing records and discussing health concerns and preventative health measures with Electronic Equipment Repairmen. ? 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 SM Not present for admin encounter. All age/gender specific CPS IAW USPSTF are up to date. No profiles, no DLCs. IMR Green.? +WWQ.? 2.?Nicotine dependence Nicotine cessation highly encouraged/advised; F/U with PCM/BHOP?as needed. Kimberli Reyes CTR?HEATSET WINDER OPERATOR-C [facility] [place] Provider Flight Medicine? ?[facility] [place]??[address] office- [phone] ? 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 SM?present for virtual encounter. NO MH Hx or current care. No indication for any MH referrals. Denies SI/HI. No profiles, no DLCs. IMR Green.? 2.?Nicotine dependence Nicotine cessation highly encouraged/advised; F/U with PCM/BHOP?as needed. Kimberli Reyes CTR?HEATSET WINDER OPERATOR-C [facility] [place] [facility] Provider Flight Medicine? [address] [place], [place]??[address] [facility] [phone] ? Extracted from:Title: Eye Care Office Visit Note - CRS POM8 with DFE Author: LE GUEVARA, OD Date: 02/20/23 1.?Other specified postprocedural states S/P PRK POM8 with great refractive outcome. No Rx. No path w/ DFE. Noted small pocket of SPK inferiorly OU. Continue with RP PRN and Celluvisc QHS PRN. F/U 4 months for POM12 exam.?Continue w/ UV protection. 02/19/2025 [id number]-[id number] [facility] Assessment and Plan Extracted from:Title : Eye [...] Maintenance, 1 drop(s) Eye-Both QID,PRN:dry eyes, Pharmacy: [facility] [Not filled] ? Extracted from:Title: MHA PHA Author: YULY TILLEY TEACHER EMOTIONALLY IMPAIRED Date: 06/23/24 1.?Encounter for issue of other [...] of services available (911, 988, ??One Source, Drugless Doctor Services, Walk in , Walk in ER, [...] at age 34. Compared medications reported by gas appliance servicer helper to active medication list in [facility] [place] and any variances were documented.?SM notified of need for influenza vaccine when available to SM. ? Any complaints or issues identified while conducting the PHA have been addressed and/or referred back to the patients' PCM for care. ?crew team member advised to follow up with PCM, Behavioral Health, ED/911, or [facility] as needed for continuation of care, and/or further evaluation during exacerbations of physical and/or psychological illness or injury. See PHA document for additional information. Twenty four minutes of total time spent reviewing records and discussing health concerns and preventative health measures with Electronic Equipment Repairmen. ? 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 SM Not present for admin encounter. All age/gender specific CPS IAW USPSTF are up to date. No profiles, no DLCs. IMR Green.? +WWQ.? 2.?Nicotine dependence Nicotine cessation highly encouraged/advised; F/U with PCM/BHOP?as needed. Kimberli Reyes CTR?HEATSET WINDER OPERATOR-C [facility] [place] [facility] Provider Flight Medicine? [address] [facility], [place]??[address] Office- [phone] ? 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 SM?present for virtual encounter. NO MH Hx or current care. No indication for any MH referrals. Denies SI/HI. No profiles, no DLCs. IMR Green.? 2.?Nicotine dependence Nicotine cessation highly encouraged/advised; F/U with PCM/BHOP?as needed. Kimberli Reyes CTR?HEATSET WINDER OPERATOR-C [facility] [place] [facility] Provider Flight Medicine? [address] [facility], [place]??[address] Office- [phone] ? Extracted from:Title: Eye Care Office Visit Note - CRS POM8 with DFE Author: LE GUEVARA, OD Date: 02/20/23 1.?Other specified postprocedural states S/P PRK POM8 with great refractive outcome. No Rx. No path w/ DFE. Noted small pocket of SPK inferiorly OU. Continue with RP PRN and Celluvisc QHS PRN. F/U 4 months for POM12 exam.?Continue w/ UV protection. 02/19/[address] [place] [address] Functional Status Combined list of recent functional and cognitive assessments recorded at [facility] Defense and [facility] Affairs (VA).VA Functional [place] Measurement (FIM) Scale: 1 = Total Assistance (Subject = 0% +), 2 = Maximal Assistance (Subject = 25% +), 3 = Moderate Assistance (Subject = 50% +), 4 = Minimal Assistance (Subject = 75% +), 5 = Supervision, 6 = Modified [place] (Device), 7 = Complete [place] (Timely, Safely). Assessment Date/Time Source Assessment Type Assessment Skill Assessment Score Assessment Details No data available for this section
== END 2025-02-19 15:30 | disposition home or self-care (01) ==
LOC: HO.HMCH 14:34
PROVIDERS: PCP Internal Medicine
DX: M25.511 Pain in right shoulder (principal)

== ENCOUNTER → 2025-02-19 15:39 | Outpatient (BNV) | payer OTHER, SELFPAY | PROVIDERS: PCP Internal Medicine; Visit Provider Radiology Diagnostic Radiology | DX: M25.511 Pain in right shoulder (principal) | CPT/HCPCS: 73030 ==

== ENCOUNTER 2025-04-02 07:00 | Outpatient (RCR) | payer OTHER, SELFPAY ==
--- NOTE | 2025-03-03 07:35 | MHC.PT.EP ---
[facility] [place] Office [place] Office [place] Office [address] Mouan Contreras [address] [phone] F: [phone] F: [phone] F: [phone] F: [phone] Physical Therapy Plan of Care Date of Evaluation: 03/03/25 Date of Surgery: n/a Diagnosis: pain in R shoulder Assessment: Patient is a 29 year old male presenting to PT with complaints of pain in his R shoulder. Pt reports onset of pain began about 1 month due to insidious onset possibly related to lifting at the gym. He presents today with impairments in pain, ROM, shoulder strength, posture. Pt's current occupation is [employer], with baseline physical activities including reaching, lifting, ADLs, work. Pt expresses half-way goal of reducing pain, and is motivated to work towards this in PT. Clinical presentation today is most consistent with signs and sx associated with R shoulder pain and pt will benefit from skilled PT 2 week x 4 weeks to address the following problems and impairments noted upon evaluation: pain, ROM, shoulder strength, posture. These problems limit the patient with the following functional activities: reaching, lifting, ADLs, work. The prescribed treatment plan of care is medically necessary. Co-morbidities of anxiety were identified and taken into considerations of plan of care. Pt was educated on HEP, role of PT, prognosis, POC. Frequency and Duration: The patient will be seen 2 x week x 4 weeks Short Term Goals: Pt will demonstrate symmetrical pain free ROM in 2 weeks. Pt will demonstrate R shoulder periscap MMT strength by 1/3 grade in 2 weeks. Pt will demonstrate centralization of sx in 2 weeks. Halfway Goals: Pt will demonstrate improved SPADI score by 13 points in 4 weeks for improved functional mobility. Pt will demonstrate ability to push with min to no pain in 4 weeks for return to PLOF. Pt will demonstrate ability to lift with min to no pain in 4 weeks for improved tolerance to work activities. Treatment Plan: Modalities to reduce pain, spasms and effusion. Manual therapy to restore motion and function. Therapeutic exercise to improve strength and flexibility. Neuromuscular re-education for posture and balance. Therapeutic activities to return to functional activities of daily living. Electronically signed by: Traci Loco, PT, DPT, ATC Please sign and return to therapist. Thank you for your referral.
--- NOTE | 2025-05-03 06:15 | MHC.PT.DC ---
[facility] [place] Office [place] Office [place] Office [address] Contreras [address] [phone] F: [phone] F: [phone] F: [phone] F: [phone] Physical Therapy Discharge Report Diagnosis: pain in R shoulder Date of Surgery: n/a Date of Evaluation: 03/03/25 Date of Discharge: 05/03/25 Treatments to Date: 4 Cancellations to Date: 1 No Shows to Date: 0 Discharge Status: Discharge Summary: Pt was placed on 30 day hold at last visit as he was feeling better and wanted to transition to HEP. Pt has not returned in 30 days so therefore to be d/c. Electronically signed by: Traci Loco, PT, DPT, ATC Please sign and return to therapist. Thank you for your referral.
== END 2025-05-03 06:15 | disposition home or self-care (01) ==
LOC: HO.PTCHIC 07:00
PROVIDERS: PCP Internal Medicine
DX: M25.511 Pain in right shoulder (principal); R20.0 Anesthesia of skin
CPT/HCPCS: 97110; 97161

== ENCOUNTER 2025-06-24 10:28 | Outpatient (AMB) | payer OTHER, SELFPAY ==
[2025-06-24 10:36] VITALS: BP 126/58; PULSE 96; O2SAT 97; BMI 24.9
--- NOTE | 2025-06-24 10:36 | A.OFFPC_ITS ---
Vital Signs 06/24/25 10:36 Height 5 ft 9 in Weight 168 lb 6 oz BMI 24.9 BP 126/58 L Blood Pressure Location Lt brachial Position Sitting Pulse 96 Pulse Source Pulse Oximeter Pulse Oximetry (%) 97 Intake Visit Reasons: annual exam Bulb Filler Required: No Accompanied by: Self / Same As Patient Allergies No Known Allergies Allergy (Verified 06/24/25 10:42) Medication List - Last Reconciled 06/24/25 by Sonja Gooden MD No Known Home Meds Tobacco use date assessed: 06/24/25 Dental Screening Dental Screen Date: 06/24/25 Did you have a dental visit in the last 12 months?: No Did you have a dental problem in the last 6 months where you did not have access to dental care?: No Was dental information given to patient?: No HPI HPI Comments History of Present Illness Details The patient is a 29-year-old male presenting for an annual [facility] physical examination. He reports a history of hand stiffness, which he managed with occupational therapy exercises learned two years ago. The stiffness persists, particularly when using small tools, but is generally manageable with exercises. 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 Physical therapy was attempted but provided only temporary relief, and the pain has progressively worsened. He is considering further evaluation by a surgeon for potential injections. The patient reports regular migraine headaches, which he manages with caffeine and nbgu-uyc-itnyomx medications like ibuprofen and acetaminophen. He finds these measures sufficient for control and has not required prescription medication. He has a history of sinus congestion, exacerbated by dust mite allergies, which he manages with nasal irrigation and occasional use of corticosteroid nasal spray. The symptoms are chronic but manageable with these interventions. Family history is significant for diabetes and hypertension in his parents, and depression in his maternal grandmother. [facility] Medical History Anxiety Attention deficit Fatigue Daytime somnolence Surgical History History of photorefractive keratectomy (PRK) Family History Father Hypertension Mother Diabetes Social History Housing: House Alcohol intake: former Patient Tobacco Use Status: Former Tobacco user Tobacco use type: Cigarette e-Cigarette/Vaping Use: Currently Using (Vape) Second Hand Smoke Exposure: Yes service: Yes ( [employer]) Current occupational status: employed Cognitive needs: No Hearing needs: No Vision needs: No Questionnaire PHQ-9 Over the last 2 weeks, how often have you been bothered by any of the following problems? 1. Little interest or pleasure in doing things: not at all 2. Feeling down, depressed, or hopeless: not at all 3. Trouble falling or staying asleep, or sleeping too much: not at all 4. Feeling tired or having little energy: not at all 5. Poor appetite or overeating: not at all 6. Feeling bad about yourself - or that you are a failure or have let yourself or your family down: not at all 7. Trouble concentrating on things, such as reading the newspaper or watching television: not at all 8. Moving or speaking so slowly that other people could have noticed. Or the opposite - being so fidgety or restless that you have been moving around a lot more than usual: not at all 9. Thoughts that you would be better off or of hurting yourself in some way: not at all Total score: 0 Depression Screening Interpretation: Negative Depression Screening Done: Yes 56685 - PHQ-9 Billing: Yes Source: Developed by Drs. Ricardo White, Marylou Rivera, Phil Patton and colleagues, with an educational braeden from [employer]. Thrive Questionnaire Date Thrive assessed: 06/24/25 I am a: Patient What is your living situation today?: I have a steady place to live Within the past 12 months, did the food you bought not last and you didn't have the money to get more?: Never true Within the past 12 months, did you worry whether your food would run out before you got money to buy more?: Never true Do you have trouble paying for medicines?: No Do you have trouble getting transportation to medical appointments?: No Do you have trouble paying your heating and electricity bill?: No Do you have trouble taking care of your child, family member or friend?: No Do you have trouble with day-to-day activities such as bathing, preparing meals, shopping, managing finances, etc.?: No Are you currently unemployed and looking for a job?: No Are you interested in more education?: No Please select the resources that you would like help with: None Currently or been in a relationship where the following occur: No concerns reported THRIVE Score: 0 AUDIT C Alcohol Use Questionnaire (AUDIT-C) 1. How often do you have a drink containing alcohol?: 2-4 times a month 2. How many drinks containing alcohol do you have on a typical day when you are drinking?: 1 or 2 3. How often do you have six or more drinks on one occasion?: Less than monthly Total Score: 3 Score Reviewed/Action Taken: No CYRIL-7 AMB Questionnaire CYRIL-7 Date CYRIL - 7 assessed: 06/24/25 Feeling nervous, anxious, or on edge: 0 = Not at all Not being able to stop or control worryin = Not at all Worrying too much about different things: 0 = Not at all Trouble relaxin = Not at all Being so restless that it is hard to sit still: 0 = Not at all Becoming easily annoyed or irritable: 0 = Not at all Feeling afraid as if something awful might happen: 0 = Not at all Total CYRIL-7 score (0-4 normal; 5-9 mild; 10-14 moderate; 15-21 severe): 0 Source: Developed by Drs. Ricardo White, Marylou Rivera, Phil Patton and colleagues, with an educational braeden from [employer]. CYRIL-7 Assessment Billing CYRIL-7 Assessment Tool: CYRIL-7 Assessment 93528 Review of Systems Const Details: Positives besides what was mentioned in HPI are in BOLD Constitutional: No Weight Change, No Fever, No Chills, No Night Sweats, No Fatigue, No Malaise ENT/Mouth: No Hearing Changes, No Ear Pain, No Nasal Congestion, No Sinus Pain, No Hoarseness, No sore throat, No Rhinorrhea, No Swallowing Difficulty Eyes: No Eye Pain, No Swelling, No Redness, No Foreign Body, No Discharge, No Vision Changes Cardiovascular: No Chest Pain, No SOB, No PND, No Dyspnea on Exertion, No Orthopnea, No Claudication, No Edema, No Palpitations Respiratory: No Cough, No Sputum, No Wheezing, No Smoke Exposure, No Dyspnea Gastrointestinal: No Nausea, No Vomiting, No Diarrhea, No Constipation, No Pain, No Heartburn, No Anorexia, No Dysphagia, No Hematochezia, No Melena, No Flatulence, No Jaundice Genitourinary: No Dysmenorrhea, No DUB, No Dyspareunia, No Dysuria, No Urinary Frequency, No Hematuria, No Urinary Incontinence, No Urgency, No Flank Pain, No Urinary Flow Changes, No Hesitancy Musculoskeletal: No Arthralgias, No Myalgias, No Joint Swelling, No Joint Stiffness, No Back Pain, No Neck Pain, No Injury History Skin: No Skin Lesions, No Pruritis, No Hair Changes, No Breast/Skin Changes, No Nipple Discharge Neuro: No Weakness, No Numbness, No Paresthesias, No Loss of Consciousness, No Syncope, No Dizziness, No Headache, No Coordination Changes, No Recent Falls Psych: No Anxiety/Panic, No Depression, No Insomnia, No Personality Changes, No Delusions, No Rumination, No SI/HI/AH/VH, No Social Issues, No Memory Changes, No Violence/Abuse Hx., No Eating Concerns Heme/Lymph: No Bruising, No Bleeding, No Transfusions History, No Lymphadenopathy Endocrine: No Polyuria, No Polydipsia, No Temperature Intolerance Physical exam (Primary Care) Vital Signs: Last Vital Signs Pulse 96 06/24/25 10:36 BP 126/58 L 06/24/25 10:36 Pulse Ox 97 06/24/25 10:36 BMI result Body Mass Index 24.9 Tobacco/Smoking Status: Tobacco use Status Tobacco use date assessed 06/24/25 06/24/25 10:43 Patient Tobacco Use Status Former Tobacco user 06/24/25 10:43 Tobacco use type Cigarette 06/24/25 10:43 e-Cigarette/Vaping Use Currently Using (Vape) 06/24/25 10:43 PHQ-9: PHQ-9 Score PHQ-9: Total score 0 06/24/25 10:43 Depression Screening Interpretation: Negative Thrive Assessment: Date of Thrive Assessment Date Thrive assessed 06/24/25 06/24/25 10:43 Currently or been in a relationship where the following occur: No concerns reported Const Other: Pertinent findings are in BOLD GENERAL APPEARANCE NAD, activity normal for age, well developed/ well nourished, no cyanosis, pallor, or diaphoresis. EYES lids/conjunctiva normal. EARS/NOSE/THROAT Mucous membranes moist, nares normal, lips/teeth normal uvula midline without oral pharyngeal erythema, exudate or swelling TMs normal bilaterally. No lymphangitis/lymphedema. HEAD/NECK normocephalic atraumatic, no facial trauma, neck is supple. RESPIRATORY respiratory effort normal, speaks in full sentences, no tripod position, no accessory muscle use. Lungs clear to auscultation without rhonchi, wheezes, rales CARDIAC Regular rate and rhythm, no edema. ABDOMINAL Soft, ND/NT. No evidence of fluid wave. No pulsatile masses on exam, rebound tenderness, Urrutia sign or pain over Mcburney's point. MUSCLES/EXTREMITIES No abnormal range of motion, no swelling. SKIN Warm, pink and dry. No rashes, dermatoses, petechiae or lesions. NEUROLOGICAL Speech is clear and appropriate. Normal level of consciousness. Gait and coordination are normal. 5/5 strength in all extremities. PSYCH Normal mood and affect. Judgement/competence is appropriate Coding Level of Care Code Est Pt Prev Care 18-39y(73020) Diagnoses Stiffness of joints of both hands M25.641; M25.642 Chondromalacia M94.20 Annual physical exam Z00.00 Vitamin D deficiency E55.9 Other migraine without status migrainosus, intractable G43.819 Migraine type: other Status migrainosus presence: without status migrainosus Intractability: intractable Sinus congestion R09.81 Additional Codes CYRIL-7 Assessment Billing - CYRIL-7 Assessment Tool: CYRIL-7 Assessment 13789 ([id number]) PHQ-9 - 06487 - PHQ-9 Billing: Yes ([id number]) Assessment & Plan Assessment & Plan (1) Stiffness of joints of both hands: Code(s): M25.641 - Stiffness of right hand, not elsewhere classified; M25.642 - Stiffness of left hand, not elsewhere classified Category: Medical Plan: Continue exercises learned at Occupational therapy. (2) Chondromalacia: Code(s): M94.20 - Chondromalacia, unspecified site Category: Medical Plan: Ortho referral updated for potential knee injection. (3) Annual physical exam: Code(s): Z00.00 - Encounter for general adult medical examination without abnormal findings Category: Medical Plan: Patient presented for yearly [facility] physical exam which was completed during this visit. Patient has on vaccines updated. Patient provided with document as per his request to present to the air [employer]. (4) Vitamin D deficiency: Code(s): E55.9 - Vitamin D deficiency, unspecified Category: Medical Plan: Patient with low vitamin-D on most recent labs. Vitamin-D supplement prescribed. We will follow-up vitamin-D level with next annual visit. (5) Migraines: Code(s): G43.909 - Migraine, unspecified, not intractable, without status migrainosus Category: Medical Qualifiers: Migraine type: other Status migrainosus presence: without status migrainosus Intractability: intractable Qualified Code(s): G43.819 - Other migraine, intractable, without status migrainosus Plan: The patient manages migraine headaches with caffeine and xjdh-cee-cwlniol medications, finding these measures sufficient for control. No prescription medications were deemed necessary at this time. (6) Sinus congestion: Code(s): R09.81 - Nasal congestion Category: Medical Plan: The patient experiences sinus congestion exacerbated by dust mite allergies, managed with nasal irrigation and corticosteroid nasal spray as needed. The symptoms are chronic but manageable with these interventions. Plan During the visit, we discussed the patient's ongoing management of hand stiffness with exercises and the potential need for further evaluation of his knee pain by a surgeon. We also reviewed his management of migraine headaches with zkwd-fdu-icvpqkf medications and caffeine, and his sinus congestion due to dust mite allergies, which he manages with nasal irrigation and corticosteroid nasal spray. Orders: Referrals Orthopedics Referral M94.20 - Chondromalacia, unspecified site Medications: New cholecalciferol (vitamin D3) 25 mcg PO DAILY 120 caps 3RF 4 months
== END 2025-06-24 11:50 | disposition home or self-care (01) ==
LOC: HO.HMCH 10:28
PROVIDERS: PCP Internal Medicine; Visit Provider Internal Medicine
DX: M25.641 Stiffness of right hand, not elsewhere classified (principal); M25.642 Stiffness of left hand, not elsewhere classified; M94.20 Chondromalacia, unspecified site; Z00.00 Encounter for general adult medical examination without abnormal findings; E55.9 Vitamin D deficiency, unspecified; G43.819 Other migraine, intractable, without status migrainosus; R09.81 Nasal congestion

== ENCOUNTER → 2025-06-24 10:28 | Outpatient (BNVA) | payer OTHER, SELFPAY | PROVIDERS: PCP Internal Medicine; Visit Provider Internal Medicine | DX: Z00.00 Encounter for general adult medical examination without abnormal findings (principal); M25.641 Stiffness of right hand, not elsewhere classified; M25.642 Stiffness of left hand, not elsewhere classified; M94.20 Chondromalacia, unspecified site; E55.9 Vitamin D deficiency, unspecified; G43.819 Other migraine, intractable, without status migrainosus; R09.81 Nasal congestion | CPT/HCPCS: 96127 ==

== ENCOUNTER 2025-07-29 08:26 | Outpatient (REF) | payer OTHER, SELFPAY ==
--- NOTE | ~2025-07-29 | XR_ITS ---
XR KNEE FREDDIE 3V HISTORY: Bilateral knee pain. COMPARISON: 10/17/2022. TECHNIQUE: AP, lateral, and patellofemoral views of each knee. FINDINGS: RIGHT KNEE: No fracture, dislocation, or suspicious bone lesion. Joint spaces are normal in all 3 compartments. Normal patellar alignment. No abnormal patellar tilt. No evidence of joint effusion. Soft tissues appear normal. LEFT KNEE: No fracture, dislocation, or suspicious bone lesion. Joint spaces are normal in all 3 compartments. Normal patellar alignment. No abnormal patellar tilt. No evidence of joint effusion. Soft tissues appear normal. XR/XR Knee Freddie 3V IMPRESSION: 1. Normal bilateral knees. Electronically signed by: Armando Jenkins MD 07/29/2025 02:24 PM EDT
== END 2025-07-29 08:27 | disposition home or self-care (01) ==
LOC: HO.HOSX 08:26
PROVIDERS: Visit Provider Orthopaedic Surgery
DX: S83.242A Other tear of medial meniscus, current injury, left knee, initial encounter (principal); X58.XXXA Exposure to other specified factors, initial encounter
CPT/HCPCS: 73562; 99212

== ENCOUNTER 2025-07-29 13:56 | Outpatient (AMB) | payer OTHER, SELFPAY ==
--- NOTE | 2025-07-29 14:16 | A.OFFVIS_ITS ---
Intake Visit Reasons: Left knee pain and giving way Intake Note: Saeed is a 29 year old man who presents with complaints of progressively worsening bilateral knee pains and giving way, left greater than right. He describes his left knee pain as sharp in nature. Most of the pain is along the medial aspect of his knee. The patient states that his symptoms have gotten worse over the last 3 years in spite of continued non operative treatments. He has failed the last 6 weeks of conservative treatment which has included physical therapy exercises, Tylenol and anti-inflammatory medicines. The patient states that his left knee ?pops? and gives out several times per day. At this point his left knee pain and mechanical symptoms are interfering with his activities of daily living and his ability to sleep well through the night. Allergies No Known Allergies Allergy (Verified 07/29/25 14:19) Medication List - Last Reconciled 07/29/25 by Joe Poe MD cholecalciferol (vitamin D3) 25 mcg PO DAILY 4 months PFS Medical History Anxiety Attention deficit Fatigue Daytime somnolence Surgical History History of photorefractive keratectomy (PRK) Family History Father Hypertension Mother Diabetes Social History Housing: House Alcohol intake: former Patient Tobacco Use Status: Former Tobacco user Tobacco use type: Cigarette e-Cigarette/Vaping Use: Currently Using (Vape) Second Hand Smoke Exposure: Yes service: Yes ([employer]) Current occupational status: employed Cognitive needs: No Hearing needs: No Vision needs: No Physical Exam Const Other: Well-nourished well-developed very friendly male awake alert and oriented x3 in no acute distress Extrem Other: Left knee examination shows a minimal effusion, minimal crepitus with range of motion, tenderness along his medial joint line, positive Cathy's test, no instability Results Reviewed Results Reviewed: Standing full weight-bearing x-rays of the patient's bilateral knee show minimal diffuse joint space narrowing, no acute bony abnormalities Assessment & Plan Assessment & Plan (1) Tear of medial meniscus of left knee: Code(s): S83.242A - Other tear of medial meniscus, current injury, left knee, initial encounter Category: Medical Plan Mr. Tipton presents with progressively worsening left knee pain and mechanical symptoms most likely due to a medial meniscus tear. Thus, I will send the patient for an MRI of his left knee for further evaluation. I will see him back once the MRI is completed to discuss the findings and treatment options. Feel free to call me at any time should questions regarding his orthopedic management arise. Thank you very much for asking me to see this very friendly gentleman. I spent 22 minutes in reviewing the patient's records and imaging studies, seeing the patient and documenting in the medical record. Orders: Orders XR Knee Freddie 3V 07/29/25 M25.561 - Pain in right knee, M25.562 - Pain in left knee MR knee LT wo con Today S83.242A - Other tear of medial meniscus, current injury, left knee, initial encounter Coding Level of Care Code New Pt Level 3 (96463) Complex EM visit Add On G2211 Diagnoses Tear of medial meniscus of left knee S83.242A
== END 2025-07-29 14:32 | disposition home or self-care (01) ==
LOC: HO.HOS 13:57
PROVIDERS: PCP Internal Medicine; Visit Provider Orthopaedic Surgery
DX: S83.242A Other tear of medial meniscus, current injury, left knee, initial encounter (principal)
CPT/HCPCS: 99213; G2211

== ENCOUNTER → 2025-07-29 14:03 | Outpatient (BNV) | payer OTHER, SELFPAY | PROVIDERS: Visit Provider Radiology Diagnostic Radiology | DX: M25.561 Pain in right knee (principal); M25.562 Pain in left knee | CPT/HCPCS: 73562 ==